=== PATIENT | female | born 1930 | race Caucasian/White ===

== ENCOUNTER → 2017-04-05 | Outpatient (REF) | payer MEDICARE ==
[~2017-04-05] MED LIST: /ADVA50050 IN; /AMLO25TA OR; /FENT25PA; /MIRT30TA OR; /PANT40TA; /ROPI1TA OR; ACET65TA OR; ALBU17IN2 IN; ALDA25TA2; AMIODIPINE; ARTISOL10; ASPI81TA3 OR; ASPI81TA83; BACT800T; CIPR250T3 OR; COLA100C2; COZA25TA8; DEMA10TA; DEMA10TA OR; DICY10CA2 OR; DIGO0.126; DIGO0.126 OR; DUONSOL; FENTANYL TOP; FERR325T OR; KEPPRA; KEPPRA OR; LAB; LOPR50TA OR; MAGN250T OR; MAGN500T2 OR; MAGNESIUM OXIDE; METO5TAB2; METO5TAB2 OR; METOPROLOL; MILKSUS; MILKSUS OR; MIRALEX; MIRALEX PO; MIRAPEX; MULTIVIT; OMEP20TA7 OR; POTA20TA OR; POTA20TA2; PRED10TA2; REME30TA; REMERON; SENN8.6T5 OR; SYNT50TA; SYNT50TA OR; TESS100C; TORS20TA2 OR; TYLENOL; VIBR100C; VICO5TAB OR; VITA500C; ZEBE5TAB; ZOCO20TA; ZOCO40TA OR; ZOLO50TA; ZOLO50TA OR; fleet enema PR; mucinex PO
[2017-04-05 16:11] LABS: BASO % 0.5 % (0.0-1.0); EOS # 0.1 K/mm3 (0.0-0.50); EOS % 1.6 % (0.0-3.0); LARGE UNSTAINED CELL # 0.1 K/mm3 (0.0-0.4); LARGE UNSTAINED CELL % 2.2 % (0.0-4.0); LYMPH % 30.7 % (24.0-44.0); MEAN CORPUSCULAR HEMOGLOBIN 28.1 pg (27.0-33.0); MEAN CORPUSCULAR VOLUME 87.7 fl (80.0-96.0); MONO # 0.4 K/mm3 (0.0-0.8); MONO % 5.9 % (0.0-5.0); NEUTROPHILS # 3.6 K/mm3 (1.8-7.7); NEUTROPHILS % 59.2 % (36.0-66.0); PLATELET COUNT, AUTOMATED 189 k/mm3 (150-450); RED CELL DISTRIBUTION WIDTH 14.5 % (11.5-14.5)
[2017-04-05 16:43] LABS: ALBUMIN 3.5 GM/DL (3.2-5.2); ALBUMIN/GLOBULIN RATIO 1.21 (1.00-1.93); BILIRUBIN,TOTAL 0.3 MG/DL (0.2-1.0); CALCIUM LEVEL 9.1 MG/DL (8.8-10.2); CREATININE FOR GFR 1.03 MG/DL (0.55-1.02); FREE T4 0.96 NG/DL (0.76-1.46); GLOMERULAR FILTRATION RATE 54.1 (>32); POTASSIUM SERUM 4.3 MEQ/L (3.5-5.1); TOTAL PROTEIN 6.4 GM/DL (6.4-8.2)
== END ==
LOC: M SFHCPLAZ 11:37
PROVIDERS: ATTEND Nurse Practitioner Family
DX: J43.9 Emphysema, unspecified (principal); E03.9 Hypothyroidism, unspecified
CPT/HCPCS: 36415; 80053; 84439; 84443; 85025; G0463

== ENCOUNTER 2018-01-31 13:20 | Emergency (ER) | payer MEDICARE ==
[2018-01-31 16:14] LABS: BASO % 0.3 % (0.0-1.0); EOS # 0.1 10^3/uL (0.0-0.50); EOS % 0.7 % (0.0-3.0); HEMATOCRIT 32.2 % (36.0-47.0); HEMOGLOBIN 10.4 g/dl (12.0-15.5); IMMATURE GRANULOCYTE % 0.4 % (0-3.0); LYMPH # 1.2 10^3/uL (1.5-4.5); LYMPH % 17.2 % (24.0-44.0); MEAN CORPUSCULAR HEMOGLOBIN 27.4 pg (27.0-33.0); MEAN CORPUSCULAR HGB CONC 32.3 g/dl (32.0-36.5); MONO # 0.5 10^3/uL (0.0-0.8); NEUTROPHILS % 73.4 % (36.0-66.0); PLATELET COUNT, AUTOMATED 211 10^3/uL (150-450); RED BLOOD COUNT 3.79 10^6/uL (4.00-5.40); RED CELL DISTRIBUTION WIDTH 15.9 % (11.5-14.5); WHITE BLOOD COUNT 6.8 10^3/uL (4.0-10.0)
[2018-01-31 17:08] LABS: ANION GAP 6 MEQ/L (8-16); BLOOD UREA NITROGEN 12 MG/DL (7-18); CALCIUM LEVEL 8.7 MG/DL (8.8-10.2); CARBON DIOXIDE LEVEL 28 MEQ/L (21-32); CHLORIDE LEVEL 109 MEQ/L (98-107); CREATININE FOR GFR 0.94 MG/DL (0.55-1.30); GLUCOSE, FASTING 99 MG/DL (70-100); POTASSIUM SERUM 4.1 MEQ/L (3.5-5.1); SODIUM LEVEL 143 MEQ/L (136-145)
[2018-01-31] MEDS ORDERED: ISOVUE-370 76% 100ML VIAL (Q9967) As Ordered (17:16)
== END 2018-01-31 18:24 | disposition home or self-care (01) ==
LOC: M ED 13:20
DX: K52.9 Noninfective gastroenteritis and colitis, unspecified (principal); I11.0 Hypertensive heart disease with heart failure; I50.9 Heart failure, unspecified; J44.9 Chronic obstructive pulmonary disease, unspecified; I25.2 Old myocardial infarction; R56.9 Unspecified convulsions; E03.9 Hypothyroidism, unspecified; F33.9 Major depressive disorder, recurrent, unspecified; Z79.899 Other long term (current) drug therapy; Z79.82 Long term (current) use of aspirin; Z79.890 Hormone replacement therapy
CPT/HCPCS: Q9967

== ENCOUNTER → 2018-05-10 | Outpatient (CLI) | payer MEDICARE | LOC: M WUC 11:21 | DX: R05 Cough (principal) | CPT/HCPCS: 71046 ==

== ENCOUNTER → 2018-05-22 | Outpatient (REF) | payer MEDICARE | LOC: M SFHCPLAZ 11:01 | DX: I50.42 Chronic combined systolic (congestive) and diastolic (congestive) heart failure (principal); J43.9 Emphysema, unspecified; Z53.8 Procedure and treatment not carried out for other reasons ==

== ENCOUNTER → 2018-05-22 | Outpatient (CLI) | payer MEDICARE ==
[2018-05-22 13:14] LABS: BASO % 0.4 % (0.0-1.0); EOS # 0.2 10^3/uL (0.0-0.50); EOS % 1.7 % (0.0-3.0); HEMATOCRIT 38.3 % (36.0-47.0); HEMOGLOBIN 12.5 g/dl (12.0-15.5); IMMATURE GRANULOCYTE % 0.4 % (0-3.0); LYMPH # 2.3 10^3/uL (1.5-4.5); MEAN CORPUSCULAR HEMOGLOBIN 27.8 pg (27.0-33.0); MEAN CORPUSCULAR HGB CONC 32.6 g/dl (32.0-36.5); MEAN CORPUSCULAR VOLUME 85.3 fl (80.0-96.0); MONO # 0.7 10^3/uL (0.0-0.8); MONO % 6.6 % (0.0-5.0); NEUTROPHILS # 7.1 10^3/uL (1.8-7.7); NEUTROPHILS % 68.9 % (36.0-66.0); PLATELET COUNT, AUTOMATED 248 10^3/uL (150-450); RED BLOOD COUNT 4.49 10^6/uL (4.00-5.40); RED CELL DISTRIBUTION WIDTH 15.9 % (11.5-14.5); WHITE BLOOD COUNT 10.3 10^3/uL (4.0-10.0)
[2018-05-22 14:01] LABS: ALBUMIN 3.2 GM/DL (3.2-5.2); ALBUMIN/GLOBULIN RATIO 0.91 (1.00-1.93); ALKALINE PHOSPHATASE 114 U/L (45-117); ALT/SGPT 28 U/L (12-78); ANION GAP 9 MEQ/L (8-16); AST/SGOT 50 U/L (7-37); BILIRUBIN,TOTAL 0.6 MG/DL (0.2-1.0); BLOOD UREA NITROGEN 35 MG/DL (7-18); CALCIUM LEVEL 9.6 MG/DL (8.8-10.2); CARBON DIOXIDE LEVEL 28 MEQ/L (21-32); CHLORIDE LEVEL 104 MEQ/L (98-107); GLOMERULAR FILTRATION RATE 55.8 (>32); GLUCOSE, FASTING 111 MG/DL (70-100); NT-PRO BNP 2834 PG/ML (<450); POTASSIUM SERUM 4.1 MEQ/L (3.5-5.1); SODIUM LEVEL 141 MEQ/L (136-145); TOTAL PROTEIN 6.7 GM/DL (6.4-8.2)
== END ==
LOC: M LAB 11:40
DX: I50.42 Chronic combined systolic (congestive) and diastolic (congestive) heart failure (principal); J43.9 Emphysema, unspecified
CPT/HCPCS: 71046

== ENCOUNTER → 2018-05-25 | Outpatient (REF) | payer MEDICARE ==
[2018-05-25 18:51] LABS: THYROID STIMULATING HORMONE 0.571 uIU/ML (0.358-3.740)
== END ==
LOC: M SFHCPLAZ 14:54
DX: R53.1 Weakness (principal)
CPT/HCPCS: 84443

== ENCOUNTER → 2018-06-08 | Outpatient (CLI) | payer MEDICARE | LOC: M CARPUL 09:33 | DX: I48.2 Chronic atrial fibrillation (principal) | CPT/HCPCS: 93306 ==

== ENCOUNTER → 2018-08-07 | Outpatient (REF) | payer MEDICARE ==
[2018-08-07 15:06] LABS: BACTERIA, URINE AUTO 1+ (NEGATIVE); MUCUS, URINE SMALL (NEGATIVE); RBC, URINE AUTO 2 /HPF (0-3); SQUAMOUS EPITHELIAL CELL UR AU 9 /HPF (0-6); WBC, URINE AUTO 3 /HPF (0-3)
== END ==
LOC: M LAB REF 13:23
DX: L22 Diaper dermatitis (principal)
CPT/HCPCS: 81015

== ENCOUNTER 2018-08-25 09:58 | Emergency (ER) | payer MEDICARE ==
[2018-08-25 10:32] LABS: AMORPHOUS SEDIMENT RFX SMALL (NEGATIVE); KETONE, URINE AUTO RFX NEGATIVE (NEGATIVE); LEUKOCYTE ESTERASE UR AUTO RFX NEGATIVE (NEGATIVE); MUCUS, URINE RFX SMALL (NEGATIVE); NITRITE, URINE AUTO RFX NEGATIVE (NEGATIVE); RBC, URINE AUTO RFX 2 /HPF (0-3); SQUAM EPITHELIAL CELL UR AURFX 3 /HPF (0-6); WBC, URINE AUTO RFX 0 /HPF (0-3)
[2018-08-25] MEDS: ACETAMINOPHEN 325 MG TAB PO (11:15)
[2018-08-25] MEDS ORDERED: ACETAMINOPHEN TAB 650MG DOSE (2X325MG) PO (11:15)
== END 2018-08-25 13:57 | disposition home or self-care (01) ==
LOC: M ED 09:58
DX: K62.3 Rectal prolapse (principal); I48.91 Unspecified atrial fibrillation; I50.9 Heart failure, unspecified; I25.10 Atherosclerotic heart disease of native coronary artery without angina pectoris; I10 Essential (primary) hypertension; N18.3 Chronic kidney disease, stage 3 (moderate); M19.90 Unspecified osteoarthritis, unspecified site; J44.9 Chronic obstructive pulmonary disease, unspecified; Z79.82 Long term (current) use of aspirin; Z79.899 Other long term (current) drug therapy
CPT/HCPCS: 74176

== ENCOUNTER 2018-10-21 19:19 | Inpatient (IN) | payer MEDICARE ==
[~2018-10-21] VITALS: Ht 160 cm; Wt 62.1 kg
[~2018-10-21 19:19] MED LIST changes: +CIPR-249 PO; +FLAG500T PO
[2018-10-21 22:02] LABS: HEMATOCRIT 31.2 % (36.0-47.0); HEMOGLOBIN 9.8 g/dl (12.0-15.5); MEAN CORPUSCULAR HEMOGLOBIN 28.8 pg (27.0-33.0); MEAN CORPUSCULAR HGB CONC 31.4 g/dl (32.0-36.5); MEAN CORPUSCULAR VOLUME 91.8 fl (80.0-96.0); PLATELET COUNT, AUTOMATED 187 10^3/uL (150-450); WHITE BLOOD COUNT 15.1 10^3/uL (4.0-10.0)
[2018-10-21 22:12] LABS: INR 1.44; PROTHROMBIN TIME 17.8 SECONDS (12.1-14.4)
[2018-10-21 22:13] LABS: PARTIAL THROMBOPLASTIN TIME 31.5 SECONDS (25.4-37.6)
[2018-10-21 22:18] LABS: ALBUMIN 2.1 GM/DL (3.2-5.2); BILIRUBIN,DIRECT 0.1 MG/DL (0.0-0.2); BILIRUBIN,TOTAL 0.2 MG/DL (0.2-1.0); CALCIUM LEVEL 8.1 MG/DL (8.8-10.2); CREATININE FOR GFR 1.49 MG/DL (0.55-1.30); GLOMERULAR FILTRATION RATE 35.2 (>32); MB/CK RELATIVE INDEX 3.97 (< OR =4); POTASSIUM SERUM 5.2 MEQ/L (3.5-5.1); TOTAL PROTEIN 5.8 GM/DL (6.4-8.2); TROPONIN I 0.02 NG/ML (< 0.10)
[2018-10-21 22:24] LABS: EOSINOPHILS 19 % (0-5); LYMPHOCYTES 15 % (16-52); MONOCYTES 5 % (0-8); NEUTROPHILS 58 % (35-75)
[2018-10-21 22:26] LABS: ANISOCYTOSIS 1+; PLATELET ESTIMATE NORMAL (NORMAL)
[2018-10-21 22:46] LABS: C REACTIVE PROTEIN QUANTITATIV 1.07 MG/DL (0.00-0.30)
--- NOTE | 2018-10-21 22:46 | REPVR ---
EXAM: CT Head Without Contrast EXAM DATE/TIME: 10/21/2018 9:57 PM CLINICAL HISTORY: 88 years old, female; Signs and symptoms; Speech disturbance; Slurred speech; Additional info: Slurred speech, weakness TECHNIQUE: Axial computed tomography images of the head/brain without contrast. All CT scans at this facility use at least one of these dose optimization techniques: automated exposure control; mA and/or kV adjustment per patient size (includes targeted exams where dose is matched to clinical indication); or iterative reconstruction. COMPARISON: No relevant prior studies available. FINDINGS: Brain: There is marked increase of the CSF space over the left frontal lobe measuring 1.2 CM in greatest thickness. This is asymmetric when compared with the right. This may represent a hygroma. An old low density subdural hematoma collection could give this low density appearance but thought less likely. Focal atrophy is another consideration. There is also prominent CSF at the anterior Falx. Ventricles: Ventricles are normal in size. Bones/joints: There is no evidence of fracture. Sinuses: Clear paranasal sinuses. Mastoid air cells: Visualized mastoid air cells are unremarkable. No mastoid effusion. Soft tissues: Unremarkable. Vasculature: There is calcification of the carotid siphon bilaterally consistent with atherosclerotic change. Other findings: No definite acute stroke can be seen. An MRI scan would be a more sensitive examination and should be considered. IMPRESSION: 1. Marked increase in the CSF space over the left frontal lobe and this could represent a cystic hygroma. 2. No evidence of acute stroke. Suggest MRI for further evaluation. Electronically signed by: Mateo Heaton On 10/21/2018 22:45:50 PM
[2018-10-21 22:56] LABS: ERYTHROCYTE SEDIMENTATION RATE 12 mm/hr (0-42)
[2018-10-22] MEDS ORDERED: methylPREDNISolone INJ 125 MG/2 ML VIAL (J2930) IV ONE (01:15)
[2018-10-22] MEDS ORDERED: NS 1,000 ML IV ONE (01:15)
[2018-10-22 01:31] LABS: CSF TUBE# GLU TUBE 3; CSF TUBE# TP TUBE 3; GLUCOSE CSF 59 MG/DL (40-75); TOTAL PROTEIN,CSF 30 MG/DL (15-45)
[2018-10-22 01:36] LABS: APPEARANCE, CSF CLEAR (CLEAR); COLOR, CSF COLORLESS (COLORLESS); CSF TUBE# CELL CNT TUBE 1
[2018-10-22 01:37] LABS: APPEARANCE, CSF CLEAR (CLEAR); COLOR, CSF COLORLESS (COLORLESS); CSF TUBE# CELL CNT TUBE 4
[2018-10-22] MEDS ORDERED: METO25TA4 PO (02:56)
[2018-10-22] MEDS ORDERED: POTA20TA6 PO (02:56)
[2018-10-22] MEDS ORDERED: KEPP1TAB PO (02:56)
[2018-10-22] MEDS ORDERED: AMLO25TA PO (02:56)
[2018-10-22] MEDS ORDERED: DICY10CA13 PO (02:56)
[2018-10-22] MEDS ORDERED: SENN8.6T7 PO (02:56)
[2018-10-22] MEDS ORDERED: FERR325T3 PO (02:56)
[2018-10-22] MEDS ORDERED: LEVO50TA5 PO (02:56)
[2018-10-22] MEDS ORDERED: REGL5TAB2 PO (02:56)
[2018-10-22] MEDS ORDERED: ASPI1TAB PO (02:56)
[2018-10-22] MEDS ORDERED: ZOLO100T PO (03:00)
[2018-10-22] MEDS ORDERED: ROPI0.253 PO (03:00)
[2018-10-22] MEDS ORDERED: REME30TA PO (03:00)
[2018-10-22] MEDS ORDERED: OMEP40CA2 PO (03:00)
[2018-10-22] MEDS ORDERED: MIRA3350 PO (03:00)
[2018-10-22] MEDS ORDERED: SIMV40TA2 PO (03:00)
[2018-10-22] MEDS ORDERED: ALBU83IN INH (03:00)
[2018-10-22] MEDS ORDERED: FENT1DIS14 TD (03:00)
[2018-10-22] MEDS ORDERED: ZOCO20TA PO (03:01)
[2018-10-22] MEDS ORDERED: TORS10TA3 PO (03:01)
[2018-10-22] MEDS: NS 1,000 ML IV SCH ×2 (03:27→08:51)
[2018-10-22] MEDS ORDERED: FUROSEMIDE 40 MG/4 ML VIAL (J1940) IV ONE (03:45)
[2018-10-22] MEDS ORDERED: diphenhydrAMINE 25 MG CAP PO PRN (04:00)
[2018-10-22] MEDS: METOPROLOL TART 25 MG TABLET PO SCH ×2 (04:22→21:14)
[2018-10-22] MEDS: SERTRALINE 100 MG TAB PO SCH ×2 (04:23→21:54)
[2018-10-22] MEDS: rOPINIRole 0.25 MG TAB(REQUIP) PO SCH ×2 (04:23→21:54)
[2018-10-22] MEDS: AZITHROMYCIN INJ 500 MG, VIAL MATE ADAPTER 1 EACH in D5W 250 ML IV SCH (06:50)
[2018-10-22 07:15] LABS: CALCIUM LEVEL 8.2 MG/DL (8.8-10.2); CREATININE FOR GFR 1.46 MG/DL (0.55-1.30); POTASSIUM SERUM 4.6 MEQ/L (3.5-5.1); THYROID STIMULATING HORMONE 3.47 uIU/ML (0.358-3.740); TROPONIN I 0.03 NG/ML (< 0.10)
[2018-10-22 08:00] VITALS: BP 120/66
[2018-10-22] MEDS: IPRATROPIUM 0.5MG/ALBUTEROL 2.5MG INH SOL UD 3ML (DUONEB)(J7620) NEB SCH ×3 (08:16→19:51)
[2018-10-22] MEDS: OMEPRAZOLE 20 MG CAP PO SCH ×2 (08:44→21:15)
[2018-10-22] MEDS: levETIRAcetam 250MG TABLET (KEPPRA) PO SCH ×2 (08:44→21:15)
[2018-10-22] MEDS: LEVOTHYROXINE 50MCG TABLET (0.05MG) PO SCH (08:44)
[2018-10-22] MEDS: SIMVASTATIN 20 MG TAB PO SCH (08:44)
[2018-10-22] MEDS: predniSONE 20 MG TAB PO SCH (08:45)
[2018-10-22] MEDS: SENOKOT S TAB PO SCH ×2 (08:45→21:15)
[2018-10-22] MEDS: FERROUS SULFATE 325MG TAB PO SCH (08:45)
--- NOTE | 2018-10-22 08:45 | HPE ---
DATE OF ADMISSION: 10/22/2018 CHIEF COMPLAINT: Cough, shortness of breath, and diffuse purpuric rash over the last 2-3 days. HISTORY OF PRESENT ILLNESS: The patient is an 88-year-old female with significant past medical history of coronary artery disease, congestive heart failure (CHF), atrial fibrillation not on anticoagulation because of rectal bleed due to rectal prolapse, transient ischemic attack (TIA), hyperlipidemia, chronic obstructive pulmonary disease (COPD), arthritis, hypothyroidism, and restless leg syndrome. The patient presents to the emergency room with cough that she is unable to clear for the past two days, difficulty breathing. She was noted to be satting in the low 80s in presentation to the emergency room. She was placed on 4 liters of oxygen with improvement in her saturations. She was also noted to have a diffuse purpuric rash on the legs, the upper extremities, the trunk. Family states the patient also had some confusion, however in the emergency room the patient was alert and oriented times three with no focal deficits appreciated on the exam. She was able to answer most of the questions cohesively. She denies any chest pain. She denies any fevers or chills, or sick contacts. She denies urinary symptoms, abdominal pain, constipation, no diarrhea. In the emergency room, her platelet count was noted to be normal. There was a drop in her hemoglobin from 12 to 9.8, but she has had a chronic bleed from rectal prolapse. Coags were unremarkable. PAST MEDICAL HISTORY: See history of present illness. PAST SURGICAL HISTORY: Appendectomy. Cholecystectomy. History of brain surgery as a child. Surgery for peptic ulcer disease. Total knee replacement. ALLERGIES: No known drug allergies. HOME MEDICATIONS: Include: - Norvasc - Colace - ferrous sulfate - Keppra - Synthroid - metoprolol - Remeron - Prilosec - ropinirole - sertraline - Zocor - aspirin - fentanyl patch - Reglan - potassium chloride - torsemide SOCIAL HISTORY: She denies tobacco, alcohol or illicit drug use. FAMILY HISTORY: Noncontributory. REVIEW OF SYSTEMS: A 12 point review of systems was completed, all of which were negative except those listed in the history of present illness. VITAL SIGNS ON ADMISSION: Temperature 97.9, pulse 86, respirations 19, satting at 90% on 4 liters nasal cannula, blood pressure 121/59. PHYSICAL EXAMINATION: GENERAL: She is an elderly female in no apparent distress. HEAD: Normocephalic, atraumatic. EYES: Extraocular movements are intact. Pupils equal, round, reactive to light. NECK: Supple. No jugular venous pressure (JVP). LUNGS: Mild wheezing, crackles at the right lung base. No use of accessory muscles. CARDIOVASCULAR: Irregularly irregular rhythm. Normal S1 and S2. No murmurs, gallops, or rubs. ABDOMEN: Soft, nontender, nondistended. Positive bowel sounds. No rebound or guarding. EXTREMITIES: No pitting edema or calf tenderness. SKIN: Has a diffuse purpuric rash, nonpruritic, noted on the legs, the upper extremities and the trunk. No rash in the oral mucosa. NEUROLOGICAL EXAM: Alert and oriented times three. No focal deficits appreciated on exam. LABS AND IMAGING COMPLETED IN THE EMERGENCY DEPARTMENT: White count of 15, hemoglobin and hematocrit of 9/31, platelet count of 187. The WBC is 15.1, which is 19% eosinophils. Coags INR of 1.4, PTT of 31, PT of 17. Chemistry shows a potassium of 52. No EKG changes. Chloride of 118, bicarb of 19, anion gap of 7, BUN and creatinine 35/1.4, baseline creatinine of 1, lactate of 1.2. CT of the head showed marked increase in CSF space over the left frontal lobe and this could represent a cystic hygroma, no evidence of acute stroke. Chest x-ray possibly shows a small right pleural effusion, possible right lower lobe blooming infiltrate versus platelike atelectasis. ASSESSMENT/PLAN: Purpuric rash, cough. Possibly secondary to community acquired pneumonia with resulting septic vasculitis. Will treat with ceftriaxone and azithromycin. Will send sputum culture for urine legionella, urine pneumococcal antigen, blood culture sent times two. 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 Will send KIP, ESR, CRP. Will place the patient on steroids 40 mg daily. Meningococcal meningitis already ruled out in the ER. CSF is negative for infection. The patient has no headache, no meningeal signs, no neck pain. It is unlikely that she has any spectrum of TTP or HSP. She has no abdominal pain. No diarrhea. Her platelets are within normal limits. Her coags are unremarkable but would also send a fibrinogen level. The patient is not on any anticoagulation. The rest of her chronic medical conditions coronary artery disease, hold aspirin in the case of purpura. Continue metoprolol 25 mg twice a day. For congestive heart failure (CHF), will hold torsemide and potassium supplements for now in the setting of likely dehydration and acute renal failure with hyperkalemia. The patient appears to be euvolemic and not fluid overloaded at this point in time. Atrial fibrillation not on anticoagulation. Continue metoprolol. Will keep the patient on telemetry and will trend troponins times two. History of transient ischemic attack (TIA). Hold aspirin for now. Hyperlipidemia. Continue statin. COPD. DuoNebs, prednisone. In mild exacerbation secondary to what is likely community acquired pneumonia. Hypothyroidism. Continue Synthroid. Send TSH. Restless leg syndrome. Continue ropinirole. The patient does have a fentanyl patch in place. Deep vein thrombosis (DVT) prophylaxis. Sequential compression devices (SCD) in the setting of purpuric rash. Gastrointestinal (GI) prophylaxis, not indicated. Diet. Cardiac. This possible allergic contact dermatitis versus autoimmune vasculitis versus infectious vasculitis secondary to pneumonia. Will place the patient on Benadryl and prednisone. Will send KIP, ESR, CRP. Will treat for pneumonia. Will send sputum culture, urine legionella, urine pneumococcal antigen. Allergic contact dermatitis with an elevated eosinophil count. [facility]
[2018-10-22] MEDS: cefTRIAXone SOD 1 GM in D5W MINI-BAG PLUS 50 ML IV SCH (08:50)
[2018-10-22] MEDS ORDERED: METOPROLOL TART 25 MG TABLET PO SCH (09:00)
--- NOTE | 2018-10-22 09:13 | ECGEPIP ---
Stationary ECG Study [facility] Test Date: 2018-10-22 Pat Name: MELLY ABEL Department: Room: [place] [address] Gender: F Flight Attendant: LEONID : 1930 Requested By: ALCON TUESDAY Order Number: [id number] Reading MD: Chelly Kline Measurements Intervals [place] Rate: 66 P: [place]: 0 QRS: -46 QRSD: 82 T: 25 QT: 404 QTc: 424 Interpretive Statements ATRIAL FIBRILLATION LOW QRS VOLTAGE IN EXTREMITY LEADS PATTERN CONSISTENT WITH PULMONARY DISEASE INFERIOR MYOCARDIAL INFARCTION, PROBABLY OLD NO PRIOR Electronically Signed On 10-22-2018 9:12:38 EST by Chelly Kline
[2018-10-22] MEDS: DICYCLOMINE 10 MG CAP PO SCH ×4 (10:06→21:15)
--- NOTE | 2018-10-22 11:03 | REP ---
AP PORTABLE CHEST: 10/22/2018. COMPARISON: Chest x-ray 05/22/2018, 05/10/2018, lung windows from CT abdomen/pelvis 08/25/2018. CLINICAL HISTORY: Cough. FINDINGS: There is right base infiltrate above the diaphragm and streaky density extending toward it. There is some underlying interstitial fibrosis. Heart mildly prominent, left atrial enlargement noted. Appears to be some vascular redistribution, engorgement of central veins, but no qi edema. No gross effusion on the left. Small effusion difficult to exclude on the right. Aortic calcified and tortuous, unchanged. Airway midline, unchanged. Degenerative changes in the spine. Some underlying interstitial fibrosis noted. IMPRESSION: 1. Right base infiltrate suggesting acute pneumonia. Small effusion difficult to exclude. 2. Left atrial enlargement, vascular congestion with pulmonary venous hypertension. Heart size mildly prominent overall. No qi edema. In the setting of interstitial fibrosis, early interstitial edema may be difficult to exclude. Electronically Signed by Hesham Humphreys MD 10/22/2018 11:26 A
[2018-10-22 12:00] VITALS: BP 107/58
--- NOTE | 2018-10-22 13:07 | IPN ---
DATE OF VISIT: 10/22/2018 Mrs. Miramontes was admitted overnight with some cough, shortness of breath, confusion, and a diffuse rash of several days' duration. There is some thought that the rash was petechial, but I think that it is really more an excoriated rash. Nonetheless, she did have studies to rule out Neisseria meningitis. She says that she is coughing somewhat and is feeling a little short of breath but not raising any phlegm. She does not think that she has had any fevers, chills, or sweats. Has been itchy the last few days. She does not think she has been confused. Her current medications include Remeron 30 mg daily. She has been placed on prednisone 40 mg daily. She is on dicyclomine 10 mg four times a day, Senokot-S one twice a day, ferrous sulfate 325 mg daily, Keppra 500 mg twice a day, levothyroxine 50 mg daily, omeprazole 40 mg daily, simvastatin 20 mg daily, DuoNebs every 6 hours, ceftriaxone 1 gram daily, azithromycin 500 mg daily, metoprolol 25 mg twice a day, Benadryl 25 mg every 6 hours as needed for itching, MiraLAX one packet daily as needed, sertraline 100 mg daily, Norvasc 2.5 mg daily, Requip 0.25 mg at bedtime. On examination, her blood pressure is 102/60, pulse is 68 and regular. Her O2 saturation at this time is 99%. In the emergency room, she had been requiring 4 liters to keep her saturations in the 90s. She is an older pleasant white female. Does not appear in any distress at this time. Her speech is clear. Mucous membranes are moist. There are no neck masses, tenderness, or adenopathy. No carotid bruits. Lungs: Reveal some harsh breath sounds at both bases. Heart: Has a regular rhythm without any murmur, click, or gallop. Abdomen is soft and nontender without any masses or organomegaly. Bowel sounds are active. She does have 1+ edema of her lower extremities. I do note that her rash at first glance appears petechial but palpating it, it looks more like excoriations. Chest x-ray shows the right base infiltrate suggesting an acute pneumonia, left atrial enlargement, vascular congestion, pulmonary venous hypertension, heart size mildly increased. Her sedimentation rate is 15. Her admission laboratories showed a hemoglobin of 9.8, WBC 15,100, BUN 34, creatinine 1.6 today. Sodium 145, potassium 4.5, TSH 3.47. Troponin is 0.02 and 0.03. Liver functions are normal. ASSESSMENT: 1. Chest infiltrate consistent with community-acquired pneumonia. 2. Rash, question etiology, but more consistent with pruritus with excoriations. 3. Atrial fibrillation, not anticoagulated, presumably due to fall risk. 4. Congestive heart failure, seems stable at this time. 5. Transient ischemic attacks (TIAs) by history. 6. Hyperlipidemia. 7. Chronic obstructive pulmonary disease (COPD). 8. Hypothyroidism. 9. Anemia. PLAN: The patient will continue on her treatment for community-acquired pneumonia with steroids, nebulizers, and antibiotics. Her platelet count is normal, and I do not think this is a petechial rash, so I think she can resume her aspirin prophylaxis. For deep venous thrombosis (DVT) prophylaxis, she is getting sequential stockings. I am going to order some emollient cream, as well, for her rash. I also reviewed her medical orders for life-sustaining treatment (MOLST) form. The patient in 2016 requested comfort measures, trial of intubation, and artificial ventilation. It was noted that on her old MOLST form, her signature was not dated and timed, but the physician's signature was. Will try to do a new form with all the signatures, numbers, and dates appropriate. RACHAEL
[2018-10-22] MEDS ORDERED: ONDANSETRON 4 MG TAB (S0181) PO PRN (13:45)
[2018-10-22 16:00] VITALS: BP 91/58
--- NOTE | 2018-10-22 16:37 | ECGEPIP ---
Stationary ECG Study [facility] - ED Test Date: 2018-10-21 Pat Name: MELLY ABEL Department: Room: [place] [address] Gender: F Accounts Payable Analyst: ANTHONY : 1930 Requested By: DANI Pineda Order Number: [id number] Reading MD: Elisabeth Rodas Measurements Intervals [place] Rate: 79 P: [place]: 0 QRS: -46 QRSD: 76 T: 29 QT: 365 QTc: 421 Interpretive Statements ATRIAL FIBRILLATION LOW QRS VOLTAGE IN EXTREMITY LEADS INFERIOR MYOCARDIAL INFARCTION, PROBABLY OLD NO PRIOR FOR COMPARISON Electronically Signed On 10-22-2018 16:37:38 EST by Elisabeth Rodas
[2018-10-22] MEDS: EUCERIN 120GM CREAM TOP SCH ×2 (16:44→21:16)
[2018-10-22 20:00] VITALS: BP 98/54
[2018-10-22] MEDS: MIRTAZAPINE 15 MG TAB PO SCH (21:15)
[2018-10-22 22:53] VITALS: BP 87/51
[2018-10-23] VITALS: BP 107/60
[2018-10-23] MEDS: IPRATROPIUM 0.5MG/ALBUTEROL 2.5MG INH SOL UD 3ML (DUONEB)(J7620) NEB SCH ×4 (01:09→18:46)
[2018-10-23 04:00] VITALS: BP 101/65
[2018-10-23 04:52] LABS: HEMATOCRIT 23.1 % (36.0-47.0); MEAN CORPUSCULAR HEMOGLOBIN 28.8 pg (27.0-33.0); MEAN CORPUSCULAR HGB CONC 32.9 g/dl (32.0-36.5); MEAN CORPUSCULAR VOLUME 87.5 fl (80.0-96.0); PLATELET COUNT, AUTOMATED 158 10^3/uL (150-450); RED BLOOD COUNT 2.64 10^6/uL (4.00-5.40); WHITE BLOOD COUNT 11.6 10^3/uL (4.0-10.0)
[2018-10-23] MEDS: AZITHROMYCIN INJ 500 MG, VIAL MATE ADAPTER 1 EACH in D5W 250 ML IV SCH (05:00)
[2018-10-23] MEDS: cefTRIAXone SOD 1 GM in D5W MINI-BAG PLUS 50 ML IV SCH (05:04)
[2018-10-23 05:07] LABS: HEMOGLOBIN 7.6 g/dl (12.0-15.5)
[2018-10-23 05:13] LABS: CALCIUM LEVEL 7.6 MG/DL (8.8-10.2); CREATININE FOR GFR 1.65 MG/DL (0.55-1.30); GLOMERULAR FILTRATION RATE 31.3 (>32); POTASSIUM SERUM 4.4 MEQ/L (3.5-5.1)
[2018-10-23 08:00] VITALS: BP 108/65
[2018-10-23] MEDS: FERROUS SULFATE 325MG TAB PO SCH (09:28)
[2018-10-23] MEDS: DICYCLOMINE 10 MG CAP PO SCH ×4 (09:28→22:01)
[2018-10-23] MEDS: levETIRAcetam 250MG TABLET (KEPPRA) PO SCH ×2 (09:28→21:58)
[2018-10-23] MEDS: SIMVASTATIN 20 MG TAB PO SCH (09:28)
[2018-10-23] MEDS: LEVOTHYROXINE 50MCG TABLET (0.05MG) PO SCH (09:29)
[2018-10-23] MEDS: SENOKOT S TAB PO SCH ×2 (09:29→21:58)
[2018-10-23] MEDS: METOPROLOL TART 25 MG TABLET PO SCH ×2 (09:29→21:58)
[2018-10-23] MEDS: predniSONE 20 MG TAB PO SCH (09:29)
[2018-10-23] MEDS: OMEPRAZOLE 20 MG CAP PO SCH ×2 (09:30→21:58)
[2018-10-23] MEDS: EUCERIN 120GM CREAM TOP SCH ×2 (09:31→21:59)
[2018-10-23 12:00] VITALS: BP 127/66
[2018-10-23 16:00] VITALS: BP 113/58
[2018-10-23 16:47] LABS: HEMATOCRIT 31.2 % (36.0-47.0); HEMOGLOBIN 10.2 g/dl (12.0-15.5)
--- NOTE | 2018-10-23 18:47 | IPNPDOC ---
Subjective Date Seen The patient was seen on 10/23/18. Subjective Chief Complaint/HPI Patient reports still having a cough. Feels about the same as admission. Has history of rectal prolapse. Denies lightheadedness, chest pain. Constitutional: Denies: Chills, Fever ENT: Denies: Head Aches Pulmonary: Reports: Cough Objective Physical Examination General Exam: Positive: Alert, Cooperative ENT Exam: Positive: Atraumatic Neck Exam: Positive: Supple Chest Exam: Positive: Rhonchi, Wheezing Heart Exam: Positive: Rate Normal, Normal S1, Normal S2 Abdomen Exam: Positive: Normal bowel sounds Skin Exam: Positive: Rash (Diffuse on upper extremity, across chest and back. Appears ) Psych Exam: Positive: Mood NL Assessment /Plan Problems (1) Pneumonia Problem Text: Continue Azithromycin and Ceftriaxone at this time. Also continue Prednisone. (2) Rash Problem Text: Rash was thought to have been petechial. CBC continues to show normal platelet level. Today appears as excoriations. (3) Rectal prolapse Status: Chronic Problem Text: Patient has chronic history of. Monitoring anemia. Likely secondary to GI blood loss. Repeat H-H later. No blood transfusion at this time. Patient states she would consent to it if needed. On medications for constipation. (4) Anemia Problem Text: Likely has anemia secondary to blood loss. Continue iron. Hgb dropped to 7.6 today.Repeat H+H at 1400. No transfusion at this time. (5) Atrial fibrillation Problem Text: Not on anticoagulation on admission. Is on rate control with Lopressor 25 mg BID. (6) Hypothyroid Problem Text: Continue Synthroid. (7) Restless leg syndrome Problem Text: Continue Requip. Also wears pain patch, Fentanyl. (8) CHF (congestive heart failure) Problem Text: Last ECHO 06/22 EF 65%, diastolic. (9) Hyperlipemia Problem Text: Continue statin. (10) COPD (chronic obstructive pulmonary disease) Problem Text: Nebulizers q6h. (11) HTN (hypertension) Problem Text: Amlodipine, continue. Monitor Vitals. Plan/VTE VTE Prophylaxis Ordered?: Yes (Teds) VS, I&O, 24H, Fishbone Vital Signs/I&O Vital Signs Date Time Temp Pulse Resp B/P (MAP) Pulse Ox O2 Delivery O2 Flow Rate FiO2 10/23/18 12:00 98.2 70 18 127/66 (86) 93 10/22/18 03:19 Nasal Cannula 4.0 I&O- Last 24 Hours up to 6 AM 10/23/18 06:00 Intake Total 1010 ml Output Total 425 ml Balance 585 ml Laboratory Data 24H LABS Laboratory Tests 2 10/23/18 04:42: Nucleated Red Blood Cells % (auto) 0.2H, Anion Gap 8, Glomerular Filtration Rate 31.3L, Blood Urea Nitrogen 41H, Creatinine 1.65H, Sodium Level 143, Potassium Level 4.4, Chloride Level 116H, Carbon Dioxide Level 19L, Calcium Level 7.6L CBC/BMP Laboratory Tests 10/23/18 04:42 Red Blood Count 2.64 L, Mean Corpuscular Volume 87.5, Mean Corpuscular Hemoglobin 28.8, Mean Corpuscular Hemoglobin Concent 32.9, Red Cell Distribution Width 17.5 H, Calcium Level 7.6 L 10/23/18 16:24 Microbiology Microbiology 10/21/18 Blood Culture - Preliminary, Resulted No growth after 24 hours . All specim... 10/21/18 Blood Culture - Preliminary, Resulted No growth after 24 hours . All specim... 10/22/18 - Final, Complete 10/22/18 Gram Stain - Final, Resulted 10/22/18 CSF Culture, Resulted Pending GME ATTESTATION GME ATTESTATION My faculty preceptor for this patient encounter was physically present during the encounter and was fully available. All aspects of the patient interview, exa mination, medical decision making process, and medical care plan development were reviewed and approved by the faculty preceptor. The faculty preceptor is aware and concurs with the plan as stated in the body of this note and will attest to such by his/her cosignature. GEORGE LAWSON DO Oct 23, 2018 18:47
[2018-10-23] MEDS: SERTRALINE 100 MG TAB PO SCH (21:58)
[2018-10-23] MEDS: MIRTAZAPINE 15 MG TAB PO SCH (21:58)
[2018-10-23] MEDS: rOPINIRole 0.25 MG TAB(REQUIP) PO SCH (21:58)
[2018-10-23 22:00] VITALS: BP 113/58
[2018-10-24] MEDS: IPRATROPIUM 0.5MG/ALBUTEROL 2.5MG INH SOL UD 3ML (DUONEB)(J7620) NEB SCH ×4 (00:18→17:46)
[2018-10-24] MEDS: AZITHROMYCIN INJ 500 MG, VIAL MATE ADAPTER 1 EACH in D5W 250 ML IV SCH (04:19)
[2018-10-24 06:00] VITALS: BP 119/68
[2018-10-24 06:05] LABS: HEMATOCRIT 24.3 % (36.0-47.0); MEAN CORPUSCULAR HEMOGLOBIN 29.2 pg (27.0-33.0); MEAN CORPUSCULAR HGB CONC 32.9 g/dl (32.0-36.5); MEAN CORPUSCULAR VOLUME 88.7 fl (80.0-96.0); PLATELET COUNT, AUTOMATED 150 10^3/uL (150-450); RED BLOOD COUNT 2.74 10^6/uL (4.00-5.40); WHITE BLOOD COUNT 10.5 10^3/uL (4.0-10.0)
[2018-10-24] MEDS: cefTRIAXone SOD 1 GM in D5W MINI-BAG PLUS 50 ML IV SCH (06:22)
[2018-10-24 06:24] LABS: CALCIUM LEVEL 7.7 MG/DL (8.8-10.2); CREATININE FOR GFR 1.52 MG/DL (0.55-1.30); GLOMERULAR FILTRATION RATE 34.4 (>32); POTASSIUM SERUM 4.1 MEQ/L (3.5-5.1)
[2018-10-24] MEDS: SIMVASTATIN 20 MG TAB PO SCH (08:34)
[2018-10-24] MEDS: DICYCLOMINE 10 MG CAP PO SCH ×4 (08:34→21:46)
[2018-10-24] MEDS: OMEPRAZOLE 20 MG CAP PO SCH ×2 (08:35→21:46)
[2018-10-24] MEDS: LEVOTHYROXINE 50MCG TABLET (0.05MG) PO SCH (08:35)
[2018-10-24] MEDS: levETIRAcetam 250MG TABLET (KEPPRA) PO SCH ×2 (08:35→21:58)
[2018-10-24] MEDS: predniSONE 20 MG TAB PO SCH (08:35)
[2018-10-24] MEDS: SENOKOT S TAB PO SCH ×2 (08:35→21:46)
[2018-10-24] MEDS: METOPROLOL TART 25 MG TABLET PO SCH ×2 (08:36→21:47)
[2018-10-24] MEDS: FERROUS SULFATE 325MG TAB PO SCH (08:36)
[2018-10-24] MEDS: EUCERIN 120GM CREAM TOP SCH ×2 (08:37→21:58)
[2018-10-24] MEDS: fentaNYL 25 MCG/HR PATCH TOP SCH (08:38)
[2018-10-24] MEDS: FENTANYL REMOVAL DOCUMENTATION MISC XX SCH (08:39)
[2018-10-24] MEDS ORDERED: FENTANYL REMOVAL DOCUMENTATION MISC XX SCH (09:00)
[2018-10-24] MEDS ORDERED: fentaNYL 25 MCG/HR PATCH TD PRN (09:00)
[2018-10-24] MEDS ORDERED: FLUBLOK(EGG FREE)(QUAD)INFLUENZA VACC 0.5ML SYRINGE (90682)18YRS&OLDER IM SCH (09:00)
--- NOTE | 2018-10-24 11:35 | IPNPDOC ---
Subjective Date Seen The patient was seen on 10/24/18. Subjective Chief Complaint/HPI Pt this morning states that she really is feeling better. Her breathing has improved, she is feeling less SOB. She has some pain in her L heel when she attempts to stand and put pressure on it. This started after a recent fall. General: Denies: Fatigue Constitutional: Denies: Chills, Fever Pulmonary: Reports: Dyspnea, Cough Cardiovascular: Denies: Chest Pain, Palpitations Gastrointestinal: Denies: Nausea, Vomiting Psych: Reports: Mood Normal Objective Physical Examination General Exam: Positive: Alert, Cooperative ENT Exam: Positive: Atraumatic Neck Exam: Positive: Supple Chest Exam: Positive: Rhonchi, Wheezing Heart Exam: Positive: Rate Normal, Normal S1, Normal S2 Abdomen Exam: Positive: Normal bowel sounds, Soft; Negative: Tenderness Skin Exam: Positive: Rash (Diffuse on upper extremity, across chest and back. Appears ) Psych Exam: Positive: Mood NL Assessment /Plan Assessment Agree with below. Encouraged patient to work with PT. Clinically appears to be improving. -- CDT Problems (1) Pneumonia Problem Text: 10/24 Change IV rocephin to PO cefdinir, change azithromycin to PO, reduce pred 40 to 30 mg daily. resp status improving, afebrile, improving leukocytosis. (2) Rash Problem Text: Rash was thought to have been petechial. CBC continues to show normal platelet level. Today appears as excoriations. (3) Rectal prolapse Status: Chronic Problem Text: Patient has chronic history of. Monitoring anemia. Likely secondary to GI blood loss. Repeat H-H later. No blood transfusion at this time. Patient states she would consent to it if needed. On medications for constipation. (4) Anemia Problem Text: 10/24 Hgb 8, monitor. 10/23 Likely has anemia secondary to blood loss. Continue iron. Hgb dropped to 7.6 today.Repeat H+H at 1400. No transfusion at this time. (5) Atrial fibrillation Problem Text: Not on anticoagulation on admission. Is on rate control with Lopressor 25 mg BID. (6) Hypothyroid Problem Text: Continue Synthroid. (7) Restless leg syndrome Problem Text: Continue Requip. Also wears pain patch, Fentanyl. (8) CHF (congestive heart failure) Problem Text: Last ECHO 06/22 EF 65%, diastolic. (9) Hyperlipemia Problem Text: Continue statin. (10) COPD (chronic obstructive pulmonary disease) Problem Text: Nebulizers q6h. (11) HTN (hypertension) Problem Text: Amlodipine, continue. Monitor Vitals. Plan/VTE VTE Prophylaxis Ordered?: Yes (Teds) VS, I&O, 24H, Fishbone Vital Signs/I&O Vital Signs Date Time Temp Pulse Resp B/P (MAP) Pulse Ox O2 Delivery O2 Flow Rate FiO2 10/24/18 09:45 18 10/24/18 08:36 68 123/70 10/24/18 06:00 97.2 97 10/22/18 03:19 Nasal Cannula 4.0 I&O- Last 24 Hours up to 6 AM 10/24/18 06:00 Intake Total 420 ml Output Total 100 ml Balance 320 ml Laboratory Data 24H LABS Laboratory Tests 2 10/24/18 05:39: Nucleated Red Blood Cells % (auto) 0.0, Anion Gap 9, Glomerular Filtration Rate 34.4, Blood Urea Nitrogen 39H, Creatinine 1.52H, Sodium Level 138, Potassium Level 4.1, Chloride Level 113H, Carbon Dioxide Level 16L, Calcium Level 7.7L CBC/BMP Laboratory Tests 10/23/18 16:24 10/24/18 05:39 Red Blood Count 2.74 L, Mean Corpuscular Volume 88.7, Mean Corpuscular Hemoglobin 29.2, Mean Corpuscular Hemoglobin Concent 32.9, Red Cell Distribution Width 17.4 H, Calcium Level 7.7 L Microbiology Microbiology 10/21/18 Blood Culture - Preliminary, Resulted No Growth after 48 hours. All Specime... 10/21/18 Blood Culture - Preliminary, Resulted No Growth after 48 hours. All Specime... 10/22/18 - Final, Complete 10/22/18 Gram Stain - Final, Complete 10/22/18 CSF Culture - Final, Complete ISABELA HARRIS PA-C Oct 24, 2018 11:35 MILTON NOVA DO Oct 24, 2018 23:09
--- NOTE | 2018-10-24 12:39 | REP ---
LEFT FOOT, FOUR VIEWS: HISTORY: Pain. There is no acute fracture or dislocation. There is narrowing at the first metatarsophalangeal joint space with associated sclerosis in the proximal phalange. There is deformity of the distal proximal phalange with lateral deviation of the distal phalange. The bony structure is osteopenic. IMPRESSION: There is no acute fracture or dislocation. Electronically Signed by Diony Bills MD 10/24/2018 12:48 P
[2018-10-24 14:00] VITALS: BP 134/67
[2018-10-24 20:00] VITALS: BP 121/65
[2018-10-24] MEDS: MIRTAZAPINE 15 MG TAB PO SCH (21:46)
[2018-10-24] MEDS: SERTRALINE 100 MG TAB PO SCH (21:47)
[2018-10-24] MEDS: rOPINIRole 0.25 MG TAB(REQUIP) PO SCH (21:58)
[2018-10-25 00:07] LABS: ANTINUCLEAR ANTIBODIES DIRECT Negative (Negative)
[2018-10-25] MEDS: IPRATROPIUM 0.5MG/ALBUTEROL 2.5MG INH SOL UD 3ML (DUONEB)(J7620) NEB SCH ×4 (02:11→20:42)
[2018-10-25 06:00] VITALS: BP 111/59
[2018-10-25 06:04] LABS: HEMATOCRIT 23.4 % (36.0-47.0); HEMOGLOBIN 7.8 g/dl (12.0-15.5); MEAN CORPUSCULAR HEMOGLOBIN 28.7 pg (27.0-33.0); MEAN CORPUSCULAR HGB CONC 33.3 g/dl (32.0-36.5); PLATELET COUNT, AUTOMATED 161 10^3/uL (150-450); RED BLOOD COUNT 2.72 10^6/uL (4.00-5.40); WHITE BLOOD COUNT 8.9 10^3/uL (4.0-10.0)
[2018-10-25 06:35] LABS: CALCIUM LEVEL 7.7 MG/DL (8.8-10.2); CREATININE FOR GFR 1.14 MG/DL (0.55-1.30); GLOMERULAR FILTRATION RATE 47.9 (>32); POTASSIUM SERUM 3.9 MEQ/L (3.5-5.1)
[2018-10-25] MEDS: predniSONE 20 MG TAB PO SCH (08:32)
[2018-10-25] MEDS: CEFDINIR 300 MG CAP (OMNICEF) PO SCH (08:32)
[2018-10-25] MEDS: LEVOTHYROXINE 50MCG TABLET (0.05MG) PO SCH (08:33)
[2018-10-25] MEDS: levETIRAcetam 250MG TABLET (KEPPRA) PO SCH ×2 (08:33→20:31)
[2018-10-25] MEDS: OMEPRAZOLE 20 MG CAP PO SCH ×2 (08:33→20:32)
[2018-10-25] MEDS: SIMVASTATIN 20 MG TAB PO SCH (08:33)
[2018-10-25] MEDS: FERROUS SULFATE 325MG TAB PO SCH (08:33)
[2018-10-25] MEDS: AZITHROMYCIN 250 MG TAB PO SCH (08:33)
[2018-10-25] MEDS: DICYCLOMINE 10 MG CAP PO SCH ×4 (08:33→20:32)
[2018-10-25] MEDS: SENOKOT S TAB PO SCH ×2 (08:34→20:32)
[2018-10-25] MEDS: EUCERIN 120GM CREAM TOP SCH ×2 (08:34→20:33)
[2018-10-25] MEDS: METOPROLOL TART 25 MG TABLET PO SCH ×2 (08:34→20:32)
[2018-10-25 14:00] VITALS: BP 133/75
[2018-10-25 19:10] LABS: BODY FLUID CULTURE Not Indicated (.); LEGIONELLA ANTIGEN URINE Negative (Negative); ORGANISM ID Not indicated. (.); SPECIMEN SOURCE Urine (.); URINE STREP PNEUMONIAE ANTIGEN Negative (Negative)
[2018-10-25] MEDS: rOPINIRole 0.25 MG TAB(REQUIP) PO SCH (20:32)
[2018-10-25] MEDS: MIRTAZAPINE 15 MG TAB PO SCH (20:32)
[2018-10-25] MEDS: SERTRALINE 100 MG TAB PO SCH (20:32)
[2018-10-25 22:00] VITALS: BP 118/76
--- NOTE | 2018-10-25 23:30 | IPNPDOC ---
Subjective Date Seen The patient was seen on 10/25/18. Subjective Chief Complaint/HPI States she is feeling better today. She declined physical therapy, stating that she was tired. Also, her rectal prolapse can make ambulating uncomfortable. Constitutional: Reports: Fatigue; Denies: Chills, Fever Pulmonary: Reports: Cough; Denies: Dyspnea Cardiovascular: Denies: Chest Pain Gastrointestinal: Denies: Nausea, Vomiting, Diarrhea, Constipation Objective Physical Examination General Exam: Positive: Alert, Cooperative ENT Exam: Positive: Atraumatic Neck Exam: Positive: Supple Chest Exam: Positive: Rhonchi, Wheezing Heart Exam: Positive: Rate Normal, Normal S1, Normal S2 Abdomen Exam: Positive: Normal bowel sounds, Soft; Negative: Tenderness Skin Exam: Positive: Rash (Diffuse on upper extremity, across chest and back. Appears excoriated) Psych Exam: Positive: Mood NL Assessment /Plan Problems (1) Pneumonia Problem Text: 10/24 Change IV rocephin to PO cefdinir, change azithromycin to PO, reduce pred 40 to 30 mg daily. resp status improving, afebrile, improving leukocytosis. (2) Rash Problem Text: Rash was thought to have been petechial. CBC continues to show normal platelet level. Today appears as excoriations. (3) Rectal prolapse Status: Chronic Problem Text: Patient has chronic history of. Monitoring anemia. Likely secondary to GI blood loss. Repeat H-H later. No blood transfusion at this time. Patient states she would consent to it if needed. On medications for constipation. (4) Anemia Problem Text: 10/25 -- hemoglobin continues to hover around 8. May consider a transfusion if symptomatic tomorrow. 10/24 Hgb 8, monitor. 10/23 Likely has anemia secondary to blood loss. Continue iron. Hgb dropped to 7.6 today.Repeat H+H at 1400. No transfusion at this time. (5) Atrial fibrillation Problem Text: Not on anticoagulation on admission. Is on rate control with Lopressor 25 mg BID. (6) Hypothyroid Problem Text: Continue Synthroid. (7) Restless leg syndrome Problem Text: Continue Requip. Also wears pain patch, Fentanyl. (8) CHF (congestive heart failure) Problem Text: Last ECHO 06/22 EF 65%, diastolic. (9) Hyperlipemia Problem Text: Continue statin. (10) COPD (chronic obstructive pulmonary disease) Problem Text: Nebulizers q6h. (11) HTN (hypertension) Problem Text: Amlodipine, continue. Monitor Vitals. Plan/VTE VTE Prophylaxis Ordered?: Yes (Teds) VS, I&O, 24H, Fishbone Vital Signs/I&O Vital Signs Date Time Temp Pulse Resp B/P (MAP) Pulse Ox O2 Delivery O2 Flow Rate FiO2 10/25/18 22:00 98.7 80 18 118/76 (90) 92 10/22/18 03:19 Nasal Cannula 4.0 I&O- Last 24 Hours up to 6 AM 10/25/18 06:00 Intake Total 1265 ml Output Total 750 ml Balance 515 ml Laboratory Data 24H LABS Laboratory Tests 2 10/25/18 05:38: Nucleated Red Blood Cells % (auto) 0.0, Anion Gap 6L, Glomerular Filtration Rate 47.9, Blood Urea Nitrogen 30H, Creatinine 1.14, Sodium Level 140, Potassium Level 3.9, Chloride Level 113H, Carbon Dioxide Level 21, Calcium Level 7.7L CBC/BMP Laboratory Tests 10/25/18 05:38 Red Blood Count 2.72 L, Mean Corpuscular Volume 86.0, Mean Corpuscular Hemoglobin 28.7, Mean Corpuscular Hemoglobin Concent 33.3, Red Cell Distribution Width 17.2 H, Calcium Level 7.7 L Microbiology Microbiology 10/21/18 Blood Culture - Preliminary, Resulted No Growth after 72 hours. All specime... 10/21/18 Blood Culture - Preliminary, Resulted No Growth after 72 hours. All specime... 10/22/18 - Final, Complete 10/22/18 Gram Stain - Final, Complete 10/22/18 CSF Culture - Final, Complete MILTON ONVA DO Oct 25, 2018 23:30
[2018-10-26] MEDS: IPRATROPIUM 0.5MG/ALBUTEROL 2.5MG INH SOL UD 3ML (DUONEB)(J7620) NEB SCH ×4 (01:06→20:35)
[2018-10-26 06:00] VITALS: BP 110/68
[2018-10-26 06:44] LABS: HEMATOCRIT 23.9 % (36.0-47.0); HEMOGLOBIN 7.9 g/dl (12.0-15.5); MEAN CORPUSCULAR HEMOGLOBIN 28.5 pg (27.0-33.0); MEAN CORPUSCULAR HGB CONC 33.1 g/dl (32.0-36.5); MEAN CORPUSCULAR VOLUME 86.3 fl (80.0-96.0); PLATELET COUNT, AUTOMATED 176 10^3/uL (150-450); RED BLOOD COUNT 2.77 10^6/uL (4.00-5.40); WHITE BLOOD COUNT 8.6 10^3/uL (4.0-10.0)
[2018-10-26 06:59] LABS: CALCIUM LEVEL 7.8 MG/DL (8.8-10.2); CREATININE FOR GFR 1.02 MG/DL (0.55-1.30); GLOMERULAR FILTRATION RATE 54.4 (>32); POTASSIUM SERUM 3.9 MEQ/L (3.5-5.1)
[2018-10-26] MEDS: predniSONE 20 MG TAB PO SCH (08:50)
[2018-10-26] MEDS: METOPROLOL TART 25 MG TABLET PO SCH ×2 (08:50→20:03)
[2018-10-26] MEDS: AZITHROMYCIN 250 MG TAB PO SCH (08:51)
[2018-10-26] MEDS: levETIRAcetam 250MG TABLET (KEPPRA) PO SCH ×2 (08:51→20:04)
[2018-10-26] MEDS: LEVOTHYROXINE 50MCG TABLET (0.05MG) PO SCH (08:51)
[2018-10-26] MEDS: FERROUS SULFATE 325MG TAB PO SCH (08:51)
[2018-10-26] MEDS: SIMVASTATIN 20 MG TAB PO SCH (08:51)
[2018-10-26] MEDS: OMEPRAZOLE 20 MG CAP PO SCH ×2 (08:51→20:03)
[2018-10-26] MEDS: SENOKOT S TAB PO SCH ×2 (08:51→20:04)
[2018-10-26] MEDS: DICYCLOMINE 10 MG CAP PO SCH ×4 (08:51→20:04)
[2018-10-26] MEDS: CEFDINIR 300 MG CAP (OMNICEF) PO SCH (08:51)
[2018-10-26] MEDS: EUCERIN 120GM CREAM TOP SCH ×2 (08:52→20:05)
[2018-10-26] MEDS: MIRTAZAPINE 15 MG TAB PO SCH (20:03)
[2018-10-26] MEDS: rOPINIRole 0.25 MG TAB(REQUIP) PO SCH (20:03)
[2018-10-26] MEDS: MIRALAX *UNIT DOSE* 17GM PACKET PO PRN (20:04)
[2018-10-26] MEDS: SERTRALINE 100 MG TAB PO SCH (20:04)
--- NOTE | 2018-10-26 20:33 | IPNPDOC ---
Subjective Date Seen The patient was seen on 10/26/18. Subjective Chief Complaint/HPI Patient still reports some occasional rectal pain. Will try to work more with physical therapy. Laying comfortably in bed. Constitutional: Denies: Chills, Fever Pulmonary: Denies: Dyspnea Objective Physical Examination General Exam: Positive: Alert, Cooperative ENT Exam: Positive: Atraumatic Neck Exam: Positive: Supple Chest Exam: Positive: Rhonchi, Wheezing Heart Exam: Positive: Rate Normal, Normal S1, Normal S2 Abdomen Exam: Positive: Normal bowel sounds, Soft; Negative: Tenderness Skin Exam: Positive: Rash (Diffuse on upper extremity, across chest and back. Appears excoriated) Psych Exam: Positive: Mood NL Assessment /Plan Problems (1) Pneumonia Status: Acute Problem Text: 10/26 continue PO abx. monitor for fever. 10/24 Change IV rocephin to PO cefdinir, change azithromycin to PO, reduce pred 40 to 30 mg daily. resp status improving, afebrile, improving leukocytosis. (2) Rash Status: Chronic Problem Text: Rash was thought to have been petechial. CBC continues to show normal platelet level. Today appears as excoriations. (3) Rectal prolapse Status: Chronic Problem Text: Patient has chronic history of. Monitoring anemia. Likely secondary to GI blood loss. Repeat H-H later. No blood transfusion at this time. Patient states she would consent to it if needed. On medications for constipation. (4) Anemia Problem Text: 10/26 remains stable. Repeat in AM. consider transfusion, currently asymptomatic. 10/25 -- hemoglobin continues to hover around 8. May consider a transfusion if symptomatic tomorrow. 10/24 Hgb 8, monitor. 10/23 Likely has anemia secondary to blood loss. Continue iron. Hgb dropped to 7.6 today.Repeat H+H at 1400. No transfusion at this time. (5) Atrial fibrillation Status: Chronic Problem Text: Not on anticoagulation on admission. Is on rate control with Lopressor 25 mg BID. (6) Hypothyroid Status: Chronic Problem Text: Continue Synthroid. (7) Restless leg syndrome Problem Text: Continue Requip. Also wears pain patch, Fentanyl. (8) CHF (congestive heart failure) Problem Text: Last ECHO 06/22 EF 65%, diastolic. (9) Hyperlipemia Problem Text: Continue statin. (10) COPD (chronic obstructive pulmonary disease) Problem Text: Nebulizers q6h. (11) HTN (hypertension) Problem Text: Amlodipine, continue. Monitor Vitals. Plan/VTE VTE Prophylaxis Ordered?: Yes (Teds) VS, I&O, 24H, Fishbone Vital Signs/I&O Vital Signs Date Time Temp Pulse Resp B/P (MAP) Pulse Ox O2 Delivery O2 Flow Rate FiO2 10/26/18 20:03 86 122/82 10/26/18 06:00 98.3 16 92 10/22/18 03:19 Nasal Cannula 4.0 I&O- Last 24 Hours up to 6 AM 10/26/18 06:00 Intake Total 1050 ml Output Total 2148 ml Balance -1098 ml Laboratory Data 24H LABS Laboratory Tests 2 10/26/18 06:09: Nucleated Red Blood Cells % (auto) 0.0, Anion Gap 6L, Glomerular Filtration Rate 54.4, Blood Urea Nitrogen 26H, Creatinine 1.02, Sodium Level 141, Potassium Level 3.9, Chloride Level 112H, Carbon Dioxide Level 23, Calcium Level 7.8L CBC/BMP Laboratory Tests 10/26/18 06:09 Red Blood Count 2.77 L, Mean Corpuscular Volume 86.3, Mean Corpuscular Hemoglobin 28.5, Mean Corpuscular Hemoglobin Concent 33.1, Red Cell Distribution Width 17.2 H, Calcium Level 7.8 L Microbiology Microbiology 10/21/18 Blood Culture - Preliminary, Resulted No Growth after 72 hours. All specime... 10/21/18 Blood Culture - Preliminary, Resulted No Growth after 72 hours. All specime... 10/22/18 - Final, Complete 10/22/18 Gram Stain - Final, Complete 10/22/18 CSF Culture - Final, Complete GME ATTESTATION GME ATTESTATION My faculty preceptor for this patient encounter was physically present during the encounter and was fully available. All aspects of the patient interview, examination, medical decision making process, and medical care plan development were reviewed and approved by the faculty preceptor. The faculty preceptor is aware and concurs with the plan as stated in the body of this note and will attest to such by his/her cosignature. ATTENDING NOTE Patient remains comfortable. She does not participate in PT secondary to discomfort -- initially foot discomfort, now rectal discomfort. She has not listed fatigue as a reason not to participate in PT; denies dyspnea. In light of this, I don't know that transfusion will benefit her. Hemoglobin remains stable around 8. -- GEORGE RIVERA DO Oct 26, 2018 20:33 MILTON NOVA DO Oct 27, 2018 02:05
[2018-10-26 22:00] VITALS: BP 121/65
[2018-10-27] MEDS: IPRATROPIUM 0.5MG/ALBUTEROL 2.5MG INH SOL UD 3ML (DUONEB)(J7620) NEB SCH ×4 (01:55→18:21)
[2018-10-27 06:00] VITALS: BP 120/65
[2018-10-27 06:18] LABS: HEMATOCRIT 26.3 % (36.0-47.0); HEMOGLOBIN 8.5 g/dl (12.0-15.5); MEAN CORPUSCULAR HEMOGLOBIN 28.2 pg (27.0-33.0); MEAN CORPUSCULAR HGB CONC 32.3 g/dl (32.0-36.5); MEAN CORPUSCULAR VOLUME 87.4 fl (80.0-96.0); PLATELET COUNT, AUTOMATED 213 10^3/uL (150-450); RED BLOOD COUNT 3.01 10^6/uL (4.00-5.40); WHITE BLOOD COUNT 10.1 10^3/uL (4.0-10.0)
[2018-10-27 06:33] LABS: CALCIUM LEVEL 7.5 MG/DL (8.8-10.2); CREATININE FOR GFR 0.96 MG/DL (0.55-1.30); GLOMERULAR FILTRATION RATE 58.4 (>32); POTASSIUM SERUM 3.5 MEQ/L (3.5-5.1)
[2018-10-27] MEDS: FERROUS SULFATE 325MG TAB PO SCH (09:47)
[2018-10-27] MEDS: CEFDINIR 300 MG CAP (OMNICEF) PO SCH (09:47)
[2018-10-27] MEDS: SENOKOT S TAB PO SCH ×2 (09:47→20:55)
[2018-10-27] MEDS: levETIRAcetam 250MG TABLET (KEPPRA) PO SCH ×2 (09:47→20:55)
[2018-10-27] MEDS: AZITHROMYCIN 250 MG TAB PO SCH (09:47)
[2018-10-27] MEDS: DICYCLOMINE 10 MG CAP PO SCH ×4 (09:47→20:54)
[2018-10-27] MEDS: predniSONE 20 MG TAB PO SCH (09:47)
[2018-10-27] MEDS: OMEPRAZOLE 20 MG CAP PO SCH ×2 (09:47→20:55)
[2018-10-27] MEDS: LEVOTHYROXINE 50MCG TABLET (0.05MG) PO SCH (09:47)
[2018-10-27] MEDS: SIMVASTATIN 20 MG TAB PO SCH (09:48)
[2018-10-27] MEDS: fentaNYL 25 MCG/HR PATCH TOP SCH (09:49)
[2018-10-27] MEDS: FENTANYL REMOVAL DOCUMENTATION MISC XX SCH (09:50)
[2018-10-27] MEDS: METOPROLOL TART 25 MG TABLET PO SCH ×2 (09:52→20:56)
[2018-10-27] MEDS: EUCERIN 120GM CREAM TOP SCH ×2 (09:52→20:57)
[2018-10-27] MEDS ORDERED: MOM 30ML SUSPENSION UDC PO ONE (10:45)
[2018-10-27 14:00] VITALS: BP 135/78
--- NOTE | 2018-10-27 20:06 | IPNPDOC ---
Subjective Date Seen The patient was seen on 10/27/18. Subjective Chief Complaint/HPI Patient sitting in bed. She is ready to work more with PT and get out of bed. Pain is controlled at the moment. Denies shortness of breath, chest pain. Constitutional: Denies: Chills, Fever Pulmonary: Denies: Dyspnea Cardiovascular: Denies: Chest Pain Gastrointestinal: Denies: Abdominal Pain Objective Physical Examination General Exam: Positive: Alert, No Acute Distress ENT Exam: Positive: Atraumatic Neck Exam: Positive: Supple Chest Exam: Positive: Rhonchi, Wheezing Heart Exam: Positive: Rate Normal, Normal S1, Normal S2 Abdomen Exam: Positive: Normal bowel sounds, Soft; Negative: Tenderness Skin Exam: Positive: Rash (Diffuse on upper extremity, across chest and back. Appears excoriated) Psych Exam: Positive: Mood NL Assessment /Plan Assessment Patient continue to work with PT. Needs this prior to discharge. Problems (1) Pneumonia Status: Acute Problem Text: 10/27 Continue with PO abx. Taper PO steroid. 10/24 Change IV rocephin to PO cefdinir, change azithromycin to PO, reduce pred 40 to 30 mg daily. resp status improving, afebrile, improving leukocytosis. (2) Rash Status: Chronic Problem Text: Rash was thought to have been petechial. CBC continues to show normal platelet level. Today appears as excoriations. (3) Rectal prolapse Status: Chronic Problem Text: 10/27 continue to monitor hemoglobin and monitor for bleeding. Patient has chronic history of. Monitoring anemia. Likely secondary to GI blood loss. Repeat H-H later. No blood transfusion at this time. Patient states she would consent to it if needed. On medications for constipation. (4) Anemia Problem Text: 10/25 -- hemoglobin continues to hover around 8. May consider a transfusion if symptomatic tomorrow. 10/24 Hgb 8, monitor. 10/23 Likely has anemia secondary to blood loss. Continue iron. Hgb dropped to 7.6 today.Repeat H+H at 1400. No transfusion at this time. (5) Atrial fibrillation Status: Chronic Problem Text: 10/27 continue to hold starting any anticoagulation. Not on anticoagulation on admission. Is on rate control with Lopressor 25 mg BID. (6) Hypothyroid Status: Chronic Problem Text: Continue Synthroid. (7) Restless leg syndrome Problem Text: Continue Requip. Also wears pain patch, Fentanyl. (8) CHF (congestive heart failure) Problem Text: Last ECHO 06/22 EF 65%, diastolic. (9) Hyperlipemia Problem Text: Continue statin. (10) COPD (chronic obstructive pulmonary disease) Problem Text: Nebulizers q6h. (11) HTN (hypertension) Problem Text: Amlodipine, continue. Monitor Vitals. Plan/VTE VTE Prophylaxis Ordered?: Yes (Teds) VS, I&O, 24H, Fishbone Vital Signs/I&O Vital Signs Date Time Temp Pulse Resp B/P (MAP) Pulse Ox O2 Delivery O2 Flow Rate FiO2 10/27/18 14:00 97.9 79 18 135/78 (97) 97 10/22/18 03:19 Nasal Cannula 4.0 I&O- Last 24 Hours up to 6 AM 10/27/18 06:00 Intake Total 120 ml Output Total 1800 ml Balance -1680 ml Laboratory Data 24H LABS Laboratory Tests 2 10/27/18 05:39: Nucleated Red Blood Cells % (auto) 0.0, Anion Gap 7L, Glomerular Filtration Rate 58.4, Blood Urea Nitrogen 22H, Creatinine 0.96, Sodium Level 142, Potassium Level 3.5, Chloride Level 112H, Carbon Dioxide Level 23, Calcium Level 7.5L CBC/BMP Laboratory Tests 10/27/18 05:39 Red Blood Count 3.01 L, Mean Corpuscular Volume 87.4, Mean Corpuscular Hemoglobin 28.2, Mean Corpuscular Hemoglobin Concent 32.3, Red Cell Distribution Width 17.1 H, Calcium Level 7.5 L Microbiology Microbiology 10/21/18 Blood Culture - Final, Complete NO GROWTH AFTER 5 DAYS 10/21/18 Blood Culture - Final, Complete NO GROWTH AFTER 5 DAYS 10/22/18 - Final, Complete 10/22/18 Gram Stain - Final, Complete 10/22/18 CSF Culture - Final, Complete GME ATTESTATION GME ATTESTATION My faculty preceptor for this patient encounter was physically present during the encounter and was fully available. All aspects of the patient interview, examination, medical decision making process, and medical care plan development were reviewed and approved by the faculty preceptor. The faculty preceptor is aware and concurs with the plan as stated in the body of this note and will attest to such by his/her cosignature. ATTENDING NOTE She reports that she is doing pretty well, except for constipation. She had MOM this morning, and prune juice this afternoon. She reports that is not uncommon for her to go 4-5 days without a BM. She has done limited PT over the last several days. -- KARENT GEORGE LAWSON DO Oct 27, 2018 20:06 MILTON NOVA DO Oct 28, 2018 00:54
[2018-10-27] MEDS: MIRTAZAPINE 15 MG TAB PO SCH (20:54)
[2018-10-27] MEDS: SERTRALINE 100 MG TAB PO SCH (20:54)
[2018-10-27] MEDS: rOPINIRole 0.25 MG TAB(REQUIP) PO SCH (20:54)
[2018-10-27 22:00] VITALS: BP 143/80
[2018-10-28] MEDS: IPRATROPIUM 0.5MG/ALBUTEROL 2.5MG INH SOL UD 3ML (DUONEB)(J7620) NEB SCH ×4 (02:00→20:00)
[2018-10-28 06:00] VITALS: BP 133/73
[2018-10-28] MEDS: EUCERIN 120GM CREAM TOP SCH ×2 (09:00→20:45)
[2018-10-28] MEDS: predniSONE 20 MG TAB PO SCH (09:23)
[2018-10-28] MEDS: DICYCLOMINE 10 MG CAP PO SCH ×4 (09:23→20:44)
[2018-10-28] MEDS: AZITHROMYCIN 250 MG TAB PO SCH (09:24)
[2018-10-28] MEDS: FERROUS SULFATE 325MG TAB PO SCH (09:24)
[2018-10-28] MEDS: LEVOTHYROXINE 50MCG TABLET (0.05MG) PO SCH (09:24)
[2018-10-28] MEDS: METOPROLOL TART 25 MG TABLET PO SCH ×2 (09:24→20:44)
[2018-10-28] MEDS: OMEPRAZOLE 20 MG CAP PO SCH ×2 (09:24→20:43)
[2018-10-28] MEDS: SENOKOT S TAB PO SCH ×2 (09:24→20:44)
[2018-10-28] MEDS: SIMVASTATIN 20 MG TAB PO SCH (09:25)
[2018-10-28] MEDS: levETIRAcetam 250MG TABLET (KEPPRA) PO SCH ×2 (09:25→20:43)
[2018-10-28] MEDS: CEFDINIR 300 MG CAP (OMNICEF) PO SCH (09:25)
[2018-10-28] MEDS ORDERED: MOM 30ML SUSPENSION UDC PO PRN (13:45)
--- NOTE | 2018-10-28 13:53 | IPNPDOC ---
Subjective Date Seen The patient was seen on 10/28/18. Subjective Chief Complaint/HPI Patient sitting up in chair. Has worked with PT well. Feeling better. Denies and shortness of breath or chest pain. ENT: Denies: Head Aches Cardiovascular: Denies: Chest Pain Gastrointestinal: Denies: Abdominal Pain Objective Physical Examination General Exam: Positive: Alert, Cooperative ENT Exam: Positive: Atraumatic Neck Exam: Positive: Supple Chest Exam: Positive: Rhonchi, Wheezing Heart Exam: Positive: Rate Normal, Normal S1, Normal S2 Abdomen Exam: Positive: Normal bowel sounds, Soft; Negative: Tenderness Skin Exam: Positive: Rash (Diffuse on upper extremity, across chest and back. Appears excoriated) Psych Exam: Positive: Mood NL Assessment /Plan Problems (1) Pneumonia Status: Acute Problem Text: 10/28 Continue PO antibiotics, day 4. Tapering steroid 30 mg to 20 mg. Afebrile, normal white count. 10/24 Change IV rocephin to PO cefdinir, change azithromycin to PO, reduce pred 40 to 30 mg daily. resp status improving, afebrile, improving leukocytosis. (2) Rash Status: Chronic Problem Text: 10/28 Rash likely excoriations from scratching due to pruritus. Rash was thought to have been petechial. CBC continues to show normal platelet level. Today appears as excoriations. (3) Rectal prolapse Status: Chronic Problem Text: Patient has chronic history of. Monitoring anemia. Likely secondary to GI blood loss. Repeat H-H later. No blood transfusion at this time. Patient states she would consent to it if needed. On medications for constipation. (4) Anemia Problem Text: 10/28 Hgb stable above 8. Continue to monitor. Consider blood transfusion. 10/25 -- hemoglobin continues to hover around 8. May consider a transfusion if symptomatic tomorrow. 10/24 Hgb 8, monitor. 10/23 Likely has anemia secondary to blood loss. Continue iron. Hgb dropped to 7.6 today.Repeat H+H at 1400. No transfusion at this time. (5) Atrial fibrillation Status: Chronic Problem Text: 10/28 Patient has history of bleeding from rectal prolapse. Not starting anticoagulation at this time. Not on anticoagulation on admission. Is on rate control with Lopressor 25 mg BID. (6) Hypothyroid Status: Chronic Problem Text: Continue Synthroid. (7) Restless leg syndrome Problem Text: Continue Requip. Also wears pain patch, Fentanyl. (8) CHF (congestive heart failure) Problem Text: Last ECHO 06/22 EF 65%, diastolic. (9) Hyperlipemia Problem Text: Continue statin. (10) COPD (chronic obstructive pulmonary disease) Problem Text: Change Nebulizers to as needed and from q6 to BID (11) HTN (hypertension) Problem Text: Amlodipine, continue. Monitor Vitals. Plan/VTE VTE Prophylaxis Ordered?: Yes (Teds) VS, I&O, 24H, Fishbone Vital Signs/I&O Vital Signs Date Time Temp Pulse Resp B/P (MAP) Pulse Ox O2 Delivery O2 Flow Rate FiO2 10/28/18 09:24 80 136/75 10/28/18 06:00 98.0 18 95 10/22/18 03:19 Nasal Cannula 4.0 I&O- Last 24 Hours up to 6 AM 10/28/18 06:00 Intake Total 1320 ml Output Total 1250 ml Balance 70 ml Laboratory Data Microbiology Microbiology 10/21/18 Blood Culture - Final, Complete NO GROWTH AFTER 5 DAYS 10/21/18 Blood Culture - Final, Complete NO GROWTH AFTER 5 DAYS 10/22/18 - Final, Complete 10/22/18 Gram Stain - Final, Complete 10/22/18 CSF Culture - Final, Complete GME ATTESTATION GME ATTESTATION My faculty preceptor for this patient encounter was physically present during the encounter and was fully available. All aspects of the patient interview, examination, medical decision making process, and medical care plan development were reviewed and approved by the faculty preceptor. The faculty preceptor is aware and concurs with the plan as stated in the body of this note and will attest to such by his/her cosignature. GEORGE LAWSON DO Oct 28, 2018 13:53
[2018-10-28 14:00] VITALS: BP 119/74
[2018-10-28] MEDS ORDERED: IPRATROPIUM 0.5MG/ALBUTEROL 2.5MG INH SOL UD 3ML (DUONEB)(J7620) NEB PRN (14:00)
[2018-10-28] MEDS: rOPINIRole 0.25 MG TAB(REQUIP) PO SCH (20:44)
[2018-10-28] MEDS: SERTRALINE 100 MG TAB PO SCH (20:44)
[2018-10-28] MEDS: MIRTAZAPINE 15 MG TAB PO SCH (20:44)
[2018-10-28] MEDS: MIRALAX *UNIT DOSE* 17GM PACKET PO PRN (20:50)
[2018-10-28 22:00] VITALS: BP 122/64
[2018-10-29 06:00] VITALS: BP 121/68
[2018-10-29] MEDS: IPRATROPIUM 0.5MG/ALBUTEROL 2.5MG INH SOL UD 3ML (DUONEB)(J7620) NEB SCH ×2 (07:16→19:22)
[2018-10-29] MEDS ORDERED: BISACODYL 10 MG SUPP PR PRN (08:45)
[2018-10-29] MEDS: LEVOTHYROXINE 50MCG TABLET (0.05MG) PO SCH (08:49)
[2018-10-29] MEDS: predniSONE 20 MG TAB PO SCH (08:49)
[2018-10-29] MEDS: AZITHROMYCIN 250 MG TAB PO SCH (08:49)
[2018-10-29] MEDS: SIMVASTATIN 20 MG TAB PO SCH (08:49)
[2018-10-29] MEDS: levETIRAcetam 250MG TABLET (KEPPRA) PO SCH ×2 (08:50→20:34)
[2018-10-29] MEDS: CEFDINIR 300 MG CAP (OMNICEF) PO SCH (08:50)
[2018-10-29] MEDS: SENOKOT S TAB PO SCH ×2 (08:50→20:34)
[2018-10-29] MEDS: OMEPRAZOLE 20 MG CAP PO SCH ×2 (08:50→20:34)
[2018-10-29] MEDS: DICYCLOMINE 10 MG CAP PO SCH ×4 (08:50→20:35)
[2018-10-29] MEDS: METOPROLOL TART 25 MG TABLET PO SCH ×2 (08:50→20:35)
[2018-10-29] MEDS: FERROUS SULFATE 325MG TAB PO SCH (08:50)
[2018-10-29] MEDS: EUCERIN 120GM CREAM TOP SCH ×2 (08:51→20:34)
--- NOTE | 2018-10-29 08:51 | IPNPDOC ---
Subjective Date Seen The patient was seen on 10/29/18. Subjective Chief Complaint/HPI nausea this am, otherwise ok. Constitutional: Denies: Chills Eyes: Denies: Pain ENT: Denies: Head Aches Pulmonary: Denies: Dyspnea, Cough Cardiovascular: Denies: Chest Pain, Palpitations Gastrointestinal: Reports: Nausea (after breakfast today.), Constipation (no BM in days.) Neurological: Denies: Weakness, Change in speech Psych: Reports: Mood Normal Objective Physical Examination General Exam: Positive: Alert, Cooperative ENT Exam: Positive: Atraumatic Neck Exam: Positive: Supple Chest Exam: Positive: Rhonchi, Wheezing Heart Exam: Positive: Rate Normal, Normal S1, Normal S2 Abdomen Exam: Positive: Normal bowel sounds, Soft; Negative: Tenderness Skin Exam: Positive: Rash (Diffuse on upper extremity, across chest and back. Appears excoriated, chronic) Psych Exam: Positive: Mood NL Assessment /Plan Problems (1) Pneumonia Status: Acute Response to Treatment: Improving Problem Text: 10/28 Continue PO antibiotics, day 4. Tapering steroid 30 mg to 20 mg. Afebrile, normal white count. 10/24 Change IV rocephin to PO cefdinir, change azithromycin to PO, reduce pred 40 to 30 mg daily. resp status improving, afebrile, improving leukocytosis. (2) Rash Status: Chronic Response to Treatment: Stable Problem Text: 10/29 will add topical rx. 10/28 Rash likely excoriations from scratching due to pruritus. Rash was thought to have been petechial. CBC continues to show normal platelet level. Today appears as excoriations. (3) Rectal prolapse Status: Chronic Problem Text: Patient has chronic history of. Monitoring anemia. Likely secondary to GI blood loss. Repeat H-H later. No blood transfusion at this time. Patient states she would consent to it if needed. On medications for constipation. (4) Anemia Problem Text: 10/28 Hgb stable above 8. Continue to monitor. Consider blood transfusion. 10/25 -- hemoglobin continues to hover around 8. May consider a transfusion if symptomatic tomorrow. 10/24 Hgb 8, monitor. 10/23 Likely has anemia secondary to blood loss. Continue iron. Hgb dropped to 7.6 today.Repeat H+H at 1400. No transfusion at this time. (5) Atrial fibrillation Status: Chronic Response to Treatment: Stable Problem Specific Plan: Monitor Clinically Problem Text: 10/28 Patient has history of bleeding from rectal prolapse. Not starting anticoagulation at this time. Not on anticoagulation on admission. Is on rate control with Lopressor 25 mg BID. (6) Hypothyroid Status: Chronic Response to Treatment: Stable Problem Specific Plan: Monitor Clinically Problem Text: Continue Synthroid. (7) Restless leg syndrome Problem Text: Continue Requip. Also wears pain patch, Fentanyl. (8) CHF (congestive heart failure) Problem Text: Last ECHO 06/22 EF 65%, diastolic. (9) Hyperlipemia Problem Text: Continue statin. (10) COPD (chronic obstructive pulmonary disease) Problem Text: Change Nebulizers to as needed and from q6 to BID (11) HTN (hypertension) Problem Text: Amlodipine, continue. Monitor Vitals. Plan/VTE VTE Prophylaxis Ordered?: Yes (Teds) VS, I&O, 24H, Fishbone Vital Signs/I&O Vital Signs Date Time Temp Pulse Resp B/P (MAP) Pulse Ox O2 Delivery O2 Flow Rate FiO2 10/29/18 06:00 97.8 74 16 121/68 (85) 93 I&O- Last 24 Hours up to 6 AM 10/29/18 06:00 Intake Total 1080 ml Output Total 1700 ml Balance -620 ml Laboratory Data Microbiology Microbiology 10/21/18 Blood Culture - Final, Complete NO GROWTH AFTER 5 DAYS 10/21/18 Blood Culture - Final, Complete NO GROWTH AFTER 5 DAYS 10/22/18 - Final, Complete 10/22/18 Gram Stain - Final, Complete 10/22/18 CSF Culture - Final, Complete Jeremiah Hanna MD Oct 29, 2018 08:51
[2018-10-29] MEDS: BETAMETHASONE VAL 0.1% CR 15 GM TOP SCH ×2 (09:00→20:35)
[2018-10-29 14:00] VITALS: BP 139/63
[2018-10-29] MEDS: MIRTAZAPINE 15 MG TAB PO SCH (20:34)
[2018-10-29] MEDS: SERTRALINE 100 MG TAB PO SCH (20:34)
[2018-10-29] MEDS: rOPINIRole 0.25 MG TAB(REQUIP) PO SCH (20:35)
[2018-10-29 22:00] VITALS: BP 135/72
[2018-10-30 05:57] VITALS: BP 120/70
[2018-10-30] MEDS: IPRATROPIUM 0.5MG/ALBUTEROL 2.5MG INH SOL UD 3ML (DUONEB)(J7620) NEB SCH ×2 (06:31→20:00)
[2018-10-30] MEDS: levETIRAcetam 250MG TABLET (KEPPRA) PO SCH ×2 (09:35→20:26)
[2018-10-30] MEDS: SENOKOT S TAB PO SCH ×2 (09:35→20:27)
[2018-10-30] MEDS: METOPROLOL TART 25 MG TABLET PO SCH ×2 (09:35→20:27)
[2018-10-30] MEDS: OMEPRAZOLE 20 MG CAP PO SCH ×2 (09:36→20:26)
[2018-10-30] MEDS: DICYCLOMINE 10 MG CAP PO SCH ×4 (09:36→20:26)
[2018-10-30] MEDS: FERROUS SULFATE 325MG TAB PO SCH (09:36)
[2018-10-30] MEDS: EUCERIN 120GM CREAM TOP SCH ×2 (09:36→20:28)
[2018-10-30] MEDS: LEVOTHYROXINE 50MCG TABLET (0.05MG) PO SCH (09:36)
[2018-10-30] MEDS: CEFDINIR 300 MG CAP (OMNICEF) PO SCH (09:36)
[2018-10-30] MEDS: SIMVASTATIN 20 MG TAB PO SCH (09:36)
[2018-10-30] MEDS: predniSONE 20 MG TAB PO SCH (09:36)
[2018-10-30] MEDS: AZITHROMYCIN 250 MG TAB PO SCH (09:36)
[2018-10-30] MEDS: BETAMETHASONE VAL 0.1% CR 15 GM TOP SCH ×2 (09:37→20:28)
[2018-10-30] MEDS: fentaNYL 25 MCG/HR PATCH TOP SCH (09:38)
[2018-10-30] MEDS: FENTANYL REMOVAL DOCUMENTATION MISC XX SCH (09:41)
[2018-10-30 14:00] VITALS: BP 146/67
[2018-10-30] MEDS: PREPARATION H OINTMENT (HEMORRHOID) PR PRN (15:12)
--- NOTE | 2018-10-30 18:58 | IPNPDOC ---
Subjective Date Seen The patient was seen on 10/30/18. Subjective Chief Complaint/HPI Patient notes no cough or shortness of breath. Admits to rectal pain after BMs. Usually does not take anything for it. Really would like to have this repaired via surgery. Constitutional: Denies: Chills, Fever Pulmonary: Denies: Dyspnea Cardiovascular: Denies: Chest Pain Objective Physical Examination General Exam: Positive: Alert, Cooperative ENT Exam: Positive: Atraumatic Neck Exam: Positive: Supple Chest Exam: Positive: Rhonchi, Wheezing Heart Exam: Positive: Rate Normal, Normal S1, Normal S2 Abdomen Exam: Positive: Normal bowel sounds, Soft; Negative: Tenderness Skin Exam: Positive: Rash (Diffuse on upper extremity, across chest and back. Appears excoriated) Psych Exam: Positive: Mood NL Assessment /Plan Assessment Patient has a room at [facility] for acute rehab after discharge. If not discharged tomorrow then consider making her longterm. Problems (1) Pneumonia Status: Acute Problem Text: 10/30 Last day of abx tomorrow. Will make 10 days total. Patient is afebrile. Continue to taper steroid tomorrow to 10 mg daily from 20 mg. 10/27 Continue with PO abx. Taper PO steroid. 10/24 Change IV rocephin to PO cefdinir, change azithromycin to PO, reduce pred 40 to 30 mg daily. resp status improving, afebrile, improving leukocytosis. (2) Rash Status: Chronic Problem Text: 10/30 Rash continues to improve with lotions. Continue to monitor. Rash was thought to have been petechial. CBC continues to show normal platelet level. Today appears as excoriations. (3) Rectal prolapse Status: Chronic Problem Text: 10/30 Patient has pain following BMs. Starting patient on as needed Preparation H. Wanted to start topical nitroglycerin, however was not available. Patient was scheduled to have surgery in [place] next week. Has been postponed. Was scheduled to have stress test with Dr. Gupta office last week. Discussed that this will need to be rescheduled prior to rescheduling surgery. 10/27 continue to monitor hemoglobin and monitor for bleeding. Patient has chronic history of. Monitoring anemia. Likely secondary to GI blood loss. Repeat H-H later. No blood transfusion at this time. Patient states she would consent to it if needed. On medications for constipation. (4) Anemia Problem Text: 10/30 Hgb last checked was above 8. No active bleeding. No transfusions this admission. 10/25 -- hemoglobin continues to hover around 8. May consider a transfusion if symptomatic tomorrow. 10/24 Hgb 8, monitor. 10/23 Likely has anemia secondary to blood loss. Continue iron. Hgb dropped to 7.6 today.Repeat H+H at 1400. No transfusion at this time. (5) Atrial fibrillation Status: Chronic Problem Text: 10/30 No anticoagulation. On Metoprolol 25 mg BID. 10/27 continue to hold starting any anticoagulation. Not on anticoagulation on admission. Is on rate control with Lopressor 25 mg BID. (6) Hypothyroid Status: Chronic Problem Text: Continue Synthroid. (7) Restless leg syndrome Problem Text: Continue Requip. Also wears pain patch, Fentanyl. (8) CHF (congestive heart failure) Problem Text: Last ECHO 06/22 EF 65%, diastolic. (9) Hyperlipemia Problem Text: Continue statin. (10) COPD (chronic obstructive pulmonary disease) Problem Text: Nebulizers q6h. (11) HTN (hypertension) Problem Text: Amlodipine, continue. Monitor Vitals. Plan/VTE VTE Prophylaxis Ordered?: Yes (Teds) VS, I&O, 24H, Fishbone Vital Signs/I&O Vital Signs Date Time Temp Pulse Resp B/P (MAP) Pulse Ox O2 Delivery O2 Flow Rate FiO2 10/30/18 14:00 97.9 60 22 146/67 (93) 94 I&O- Last 24 Hours up to 6 AM 10/30/18 06:00 Intake Total 1520 ml Output Total 1400 ml Balance 120 ml Laboratory Data Microbiology Microbiology 10/21/18 Blood Culture - Final, Complete NO GROWTH AFTER 5 DAYS 10/21/18 Blood Culture - Final, Complete NO GROWTH AFTER 5 DAYS 10/22/18 - Final, Complete 10/22/18 Gram Stain - Final, Complete 10/22/18 CSF Culture - Final, Complete GME ATTESTATION GME ATTESTATION My faculty preceptor for this patient encounter was physically present during the encounter and was fully available. All aspects of the patient interview, examination, medical decision making process, and medical care plan development were reviewed and approved by the faculty preceptor. The faculty preceptor is aware and concurs with the plan as stated in the body of this note and will attest to such by his/her cosignature. GEORGE LAWSON DO Oct 30, 2018 18:58
[2018-10-30] MEDS: rOPINIRole 0.25 MG TAB(REQUIP) PO SCH (20:26)
[2018-10-30] MEDS: SERTRALINE 100 MG TAB PO SCH (20:26)
[2018-10-30] MEDS: MIRTAZAPINE 15 MG TAB PO SCH (20:26)
[2018-10-30] MEDS ORDERED: NITROGLYCERIN PR SCH (21:00)
[2018-10-30] MEDS ORDERED: AQUAPHOR PR SCH (21:00)
[2018-10-30 22:00] VITALS: BP 140/69
[2018-10-31 06:00] VITALS: BP 117/67
[2018-10-31 06:19] LABS: BASO % 0.2 % (0.0-1.0); EOS # 0.4 10^3/uL (0.0-0.50); EOS % 4.7 % (0.0-3.0); HEMATOCRIT 24.4 % (36.0-47.0); HEMOGLOBIN 7.9 g/dl (12.0-15.5); LYMPH # 2.7 10^3/uL (1.5-4.5); LYMPH % 30.6 % (24.0-44.0); MEAN CORPUSCULAR HEMOGLOBIN 28.9 pg (27.0-33.0); MEAN CORPUSCULAR HGB CONC 32.4 g/dl (32.0-36.5); MEAN CORPUSCULAR VOLUME 89.4 fl (80.0-96.0); MONO # 0.8 10^3/uL (0.0-0.8); MONO % 8.6 % (0.0-5.0); NEUTROPHILS # 4.9 10^3/uL (1.8-7.7); NEUTROPHILS % 55.6 % (36.0-66.0); PLATELET COUNT, AUTOMATED 246 10^3/uL (150-450); RED BLOOD COUNT 2.73 10^6/uL (4.00-5.40); WHITE BLOOD COUNT 8.9 10^3/uL (4.0-10.0)
[2018-10-31 06:46] LABS: ALBUMIN 1.8 GM/DL (3.2-5.2); BLOOD UREA NITROGEN 16 MG/DL (7-18); CALCIUM LEVEL 7.8 MG/DL (8.8-10.2); CARBON DIOXIDE LEVEL 29 MEQ/L (21-32); CHLORIDE LEVEL 108 MEQ/L (98-107); CREATININE FOR GFR 0.64 MG/DL (0.55-1.30); FERRITIN 155 NG/ML (8-252); GLOMERULAR FILTRATION RATE > 60.0 (>32); GLUCOSE, FASTING 79 MG/DL (70-100); IRON (FE) 50 UG/DL (50-170); PERCENT SATURATION 27.6 % (13.2-45.0); PHOSPHORUS LEVEL 2.4 MG/DL (2.5-4.9); SODIUM LEVEL 141 MEQ/L (136-145); TOTAL IRON BINDING CAPACITY 181 UG/DL (250-450)
[2018-10-31] MEDS: SENOKOT S TAB PO SCH (07:40)
[2018-10-31] MEDS: IPRATROPIUM 0.5MG/ALBUTEROL 2.5MG INH SOL UD 3ML (DUONEB)(J7620) NEB SCH (08:00)
[2018-10-31] MEDS: PREPARATION H OINTMENT (HEMORRHOID) PR PRN (08:49)
[2018-10-31] MEDS: EUCERIN 120GM CREAM TOP SCH (08:50)
[2018-10-31] MEDS: levETIRAcetam 250MG TABLET (KEPPRA) PO SCH (08:51)
[2018-10-31] MEDS: OMEPRAZOLE 20 MG CAP PO SCH (08:51)
[2018-10-31] MEDS: DICYCLOMINE 10 MG CAP PO SCH (08:51)
[2018-10-31] MEDS: LEVOTHYROXINE 50MCG TABLET (0.05MG) PO SCH (08:51)
[2018-10-31] MEDS: AZITHROMYCIN 250 MG TAB PO SCH (08:51)
[2018-10-31] MEDS: FERROUS SULFATE 325MG TAB PO SCH (08:51)
[2018-10-31] MEDS: SIMVASTATIN 20 MG TAB PO SCH (08:51)
[2018-10-31] MEDS: BETAMETHASONE VAL 0.1% CR 15 GM TOP SCH (08:55)
[2018-10-31 08:58] VITALS: BP 129/90
[2018-10-31] MEDS: METOPROLOL TART 25 MG TABLET PO SCH (08:58)
[2018-10-31] MEDS ORDERED: predniSONE 10 MG TAB PO SCH (09:00)
[2018-10-31] MEDS: CEFDINIR 300 MG CAP (OMNICEF) PO SCH (09:06)
[2018-10-31] MEDS ORDERED: Docusate Sod/Senna PO (09:34)
[2018-10-31] MEDS ORDERED: PREPOI PR (09:34)
[2018-10-31] MEDS ORDERED: IPRA0.00 NEB ×2 (09:34)
[2018-10-31] MEDS ORDERED: PRED10TA2 PO (09:34)
[2018-10-31] MEDS ORDERED: BISA10SU PR (09:34)
[2018-10-31] MEDS ORDERED: MILK120011 PO (09:34)
--- NOTE | 2018-10-31 12:00 | DSES ---
DATE OF ADMISSION: 10/22/2018 DATE OF DISCHARGE: 10/31/2018 PRIMARY CARE PROVIDER: Dr. Miguel Jamil ATTENDING PHYSICIAN: Dr. Salvador Varghese This is an 88-year-old female with a past medical history of coronary artery disease, congestive heart failure (CHF), atrial fibrillation, transient ischemic attack, hyperlipidemia, chronic obstructive pulmonary disease (COPD), arthritis, hypothyroidism, restless leg syndrome, who presented to the emergency department with a cough that she had been unclear for 2 days prior to her presentation. On presentation to the emergency department, oxygen saturations were in the low 80s. The patient was placed on 4 liters nasal cannula with improvement in her oxygen saturation. Workup in the emergency department included a chest x-ray, as well as a CT of the head. No evidence of acute stroke was noted. Chest x-ray showed a small right pleural effusion with a possibility of right lower lobe blooming infiltrate versus plate-like atelectasis. The patient was subsequently admitted to the family medicine service. HOSPITAL COURSE: The patient's torsemide and potassium supplements were held secondary to dehydration. Metoprolol was continued secondary to atrial fibrillation. The patient is not anticoagulated due to a history of rectal bleeding and chronic anemia. Aspirin was held secondary to a questionable purpura rash and cough. The patient was placed on nebulizers and prednisone for her COPD. She received several days of IV antibiotics and was transitioned over to oral antibiotics within the last few days and has tolerated them well. Oxygen has been weaned off with oxygen saturations in the 96% range. Vital signs have remained stable throughout. The patient has remained afebrile throughout hospitalization. CONSULTATIONS: None. PROCEDURES: The patient is status post a lumbar puncture. CSF fluid is negative for infection. IMAGING: Head CT proved positive for mild increase in CSF space over the left frontal lobe, representing a cystic hygroma. No evidence of acute stroke was noted. Chest x-ray as already stated. Foot x-ray was completed due to pain and a fall. There was no acute fracture or dislocation. The patient was deemed appropriate for rehabilitation secondary to poor mobility and physical debility and she is agreeable to this, which we are going to transition her to rehabilitation facility. PHYSICAL EXAMINATION: HEENT: Neck is supple without lymphadenopathy or jugular venous distention (JVD). CARDIOVASCULAR: Heart rate and rhythm are irregularly irregular. PULMONARY: Lungs are clear to auscultation with diminished breath sounds, bibasilar. ABDOMEN: Soft, nontender. EXTREMITIES: Bilateral lower extremities are without any edema. NEUROLOGIC: The patient is alert and oriented times three. DISCHARGE DIAGNOSES: 1. Pneumonia. 2. Chronic obstructive pulmonary disease (COPD) exacerbation. 3. Physical debility. SECONDARY DIAGNOSES: 1. Coronary artery disease. 2. Congestive heart failure (CHF) 3. Atrial fibrillation. 4. Transient ischemic attack. 5. Hyperlipidemia. 6. Arthritis. 7. Hypothyroidism. 8. Restless leg. PLAN: The patient will be discharged to rehabilitation facility. MEDICATIONS: - DuoNeb every 12 hours scheduled and every 6 hours as needed for shortness of breath or wheezing - Dulcolax suppository daily as needed for constipation - Senokot two tablets by mouth twice a day - milk of magnesia 30 mL by mouth daily as needed for constipation - prednisone 10 mg daily for the next 5 days - shark liver oil per rectum as needed for rectal prolapse - albuterol sulfate every 4 hours as needed for shortness of breath - amlodipine 2.5 mg - aspirin 81 mg by mouth daily - dicyclomine 10 mg by mouth four times a day - Fentanyl 25 mg patch transdermal every 3 days as needed for pain - ferrous sulfate 325 mg by mouth daily - Keppra 500 mg by mouth twice a day - Synthroid 50 mcg by mouth daily - metoclopramide 5 mg by mouth before food and nightly - metoprolol tartrate 25 mg by mouth twice a day - mirtazapine 30 mg by mouth at night - omeprazole 40 mg capsule by mouth twice a day - MiraLAX 17 grams by mouth daily as needed for constipation - potassium chloride 20 mEq by mouth twice a day - ropinirole 0.25 mg tablet by mouth at night - sertraline 100 mg by mouth at night - simvastatin 20 mg by mouth daily - torsemide 10 mg by mouth daily The patient is discharged in stable and satisfactory condition with no further questions at the time of the discharge. edited: 11/01/2018 0726 tay CANO
== END 2018-10-31 11:40 | DRG 194 ==
LOC: M ED 19:19 → EDBD 19:19 → M ED INP 10-22 03:24 → M ICU 10-22 07:43 → M PCU 10-22 23:09 → M MSPAV 10-23 16:11
PROVIDERS: ADMIT Internal Medicine; ATTEND Family Medicine
DX: J18.9 Pneumonia, unspecified organism (principal); I50.32 Chronic diastolic (congestive) heart failure; J44.1 Chronic obstructive pulmonary disease with (acute) exacerbation; J44.0 Chronic obstructive pulmonary disease with (acute) lower respiratory infection; I13.0 Hypertensive heart and chronic kidney disease with heart failure and stage 1 through stage 4 chronic kidney disease, or unspecified chronic kidney disease; R21 Rash and other nonspecific skin eruption; K62.3 Rectal prolapse; E03.9 Hypothyroidism, unspecified; G25.81 Restless legs syndrome; M19.90 Unspecified osteoarthritis, unspecified site; E78.5 Hyperlipidemia, unspecified; I25.10 Atherosclerotic heart disease of native coronary artery without angina pectoris; I48.91 Unspecified atrial fibrillation; E86.0 Dehydration; N18.3 Chronic kidney disease, stage 3 (moderate); Z79.899 Other long term (current) drug therapy; Z79.82 Long term (current) use of aspirin; Z86.73 Personal history of transient ischemic attack (TIA), and cerebral infarction without residual deficits; Z96.659 Presence of unspecified artificial knee joint; D64.9 Anemia, unspecified

== ENCOUNTER → 2018-11-02 | Outpatient (REF) ==
[~2018-11-02] MED LIST changes: +ALBU83IN INH; +AMLO25TA PO; +ASPI1TAB PO; +BISA10SU PR; +DICY10CA13 PO; +Docusate Sod/Senna PO; +FENT1DIS14 TD; +FERR325T3 PO; +IPRA0.00 NEB; +KEPP1TAB PO; +LEVO50TA5 PO; +METO25TA4 PO; +MILK120011 PO; +MIRA3350 PO; +OMEP40CA2 PO; +POTA20TA6 PO; +PRED10TA2 PO; +PREPOI PR; +REGL5TAB2 PO; +REME30TA PO; +ROPI0.253 PO; +SENN8.6T7 PO; +SIMV40TA2 PO; +TORS10TA3 PO; +ZOCO20TA PO; +ZOLO100T PO
[2018-11-02 10:27] LABS: HEMATOCRIT 25.3 % (36.0-47.0); HEMOGLOBIN 7.9 g/dl (12.0-15.5); MEAN CORPUSCULAR HEMOGLOBIN 28.8 pg (27.0-33.0); MEAN CORPUSCULAR HGB CONC 31.2 g/dl (32.0-36.5); MEAN CORPUSCULAR VOLUME 92.3 fl (80.0-96.0); PLATELET COUNT, AUTOMATED 219 10^3/uL (150-450); RED BLOOD COUNT 2.74 10^6/uL (4.00-5.40); WHITE BLOOD COUNT 7.9 10^3/uL (4.0-10.0)
[2018-11-02 10:52] LABS: BLOOD UREA NITROGEN 14 MG/DL (7-18); CALCIUM LEVEL 8.1 MG/DL (8.8-10.2); CARBON DIOXIDE LEVEL 32 MEQ/L (21-32); CHLORIDE LEVEL 105 MEQ/L (98-107); CREATININE FOR GFR 0.67 MG/DL (0.55-1.30); GLOMERULAR FILTRATION RATE > 60.0 (>32); GLUCOSE, FASTING 74 MG/DL (70-100); POTASSIUM SERUM 4.3 MEQ/L (3.5-5.1); SODIUM LEVEL 142 MEQ/L (136-145)
== END ==
PROVIDERS: ATTEND Family Medicine
DX: D64.9 Anemia, unspecified (principal)

== ENCOUNTER → 2018-11-06 | Outpatient (REF) ==
[2018-11-06 08:09] LABS: HEMATOCRIT 26.2 % (36.0-47.0); HEMOGLOBIN 8.1 g/dl (12.0-15.5); MEAN CORPUSCULAR HGB CONC 30.9 g/dl (32.0-36.5); MEAN CORPUSCULAR VOLUME 93.9 fl (80.0-96.0); PLATELET COUNT, AUTOMATED 200 10^3/uL (150-450); RED BLOOD COUNT 2.79 10^6/uL (4.00-5.40); WHITE BLOOD COUNT 10.5 10^3/uL (4.0-10.0)
[2018-11-06 08:41] LABS: BLOOD UREA NITROGEN 17 MG/DL (7-18); CALCIUM LEVEL 7.9 MG/DL (8.8-10.2); CARBON DIOXIDE LEVEL 30 MEQ/L (21-32); CHLORIDE LEVEL 103 MEQ/L (98-107); CREATININE FOR GFR 0.74 MG/DL (0.55-1.30); GLOMERULAR FILTRATION RATE > 60.0 (>32); GLUCOSE, FASTING 72 MG/DL (70-100); POTASSIUM SERUM 3.8 MEQ/L (3.5-5.1); SODIUM LEVEL 141 MEQ/L (136-145)
== END ==
PROVIDERS: ATTEND Family Medicine
DX: D64.9 Anemia, unspecified (principal); K62.5 Hemorrhage of anus and rectum

== ENCOUNTER → 2018-11-06 | Outpatient (REF) | payer MEDICARE, OTHER ==
[~2018-11-06] MED LIST changes: -/ADVA50050 IN; -/AMLO25TA OR; -/FENT25PA; -/MIRT30TA OR; -/PANT40TA; -/ROPI1TA OR; +ADVA1AER2 IN; -ASPI1TAB PO; +ASPI81TA26 PO; +FENT1DIS14; +MIRT1TAB21 OR; +NORV2TAB OR; +PROT1TAB2; +REQU1TAB16 OR; +SENN1TAB41 PO; -SENN8.6T7 PO
--- NOTE | 2018-11-06 17:01 | REP ---
Chest x-ray: AP sitting view: History: COPD. Comparison study: October 22, 2018. Findings: Hazy opacity seen at the bases bilaterally consistent with small bilateral pleural effusions. Mild cardiac enlargement is observed. No focal infiltrate is seen. Impression: Hazy opacity at the bases bilaterally consistent with small bilateral pleural effusions. No focal infiltrate is seen. Prominent heart. Electronically Signed by Miller Vasquez MD 11/06/2018 05:03 P
== END ==
PROVIDERS: ATTEND Family Medicine
DX: J44.9 Chronic obstructive pulmonary disease, unspecified (principal); J18.9 Pneumonia, unspecified organism

== ENCOUNTER → 2018-11-09 | Outpatient (REF) ==
[~2018-11-09] MED LIST changes: +/ADVA50050 IN; +/AMLO25TA OR; +/FENT25PA; +/MIRT30TA OR; +/PANT40TA; +/ROPI1TA OR; -ADVA1AER2 IN; +ASPI1TAB PO; -ASPI81TA26 PO; -FENT1DIS14; -MIRT1TAB21 OR; -NORV2TAB OR; -PROT1TAB2; -REQU1TAB16 OR; -SENN1TAB41 PO; +SENN8.6T7 PO
[2018-11-09 10:52] LABS: HEMATOCRIT 23.4 % (36.0-47.0); HEMOGLOBIN 7.4 g/dl (12.0-15.5); MEAN CORPUSCULAR HEMOGLOBIN 28.5 pg (27.0-33.0); MEAN CORPUSCULAR HGB CONC 31.6 g/dl (32.0-36.5); PLATELET COUNT, AUTOMATED 196 10^3/uL (150-450)
[2018-11-09 11:32] LABS: BLOOD UREA NITROGEN 18 MG/DL (7-18); CARBON DIOXIDE LEVEL 29 MEQ/L (21-32); CHLORIDE LEVEL 102 MEQ/L (98-107); CREATININE FOR GFR 0.84 MG/DL (0.55-1.30); GLOMERULAR FILTRATION RATE > 60.0 (>32); GLUCOSE, FASTING 69 MG/DL (70-100); POTASSIUM SERUM 3.8 MEQ/L (3.5-5.1); SODIUM LEVEL 140 MEQ/L (136-145)
== END ==
PROVIDERS: ATTEND Family Medicine
DX: D64.9 Anemia, unspecified (principal)

== ENCOUNTER → 2018-11-09 | Outpatient (REF) | PROVIDERS: ATTEND Physician Assistant | DX: D64.9 Anemia, unspecified (principal) ==

== ENCOUNTER → 2018-11-09 | Outpatient (REF) | payer MEDICARE, OTHER | LOC: M LAB REF 13:00 | PROVIDERS: ATTEND Family Medicine | DX: D64.9 Anemia, unspecified (principal) ==

== ENCOUNTER 2018-11-10 11:44 | Outpatient (CLI) | payer MEDICARE ==
[~2018-11-10] VITALS: Ht 157.5 cm; Wt 62.2 kg
[~2018-11-10 11:44] MED LIST changes: +ACETAMINOPHEN TAB 650MG DOSE (2X325MG) PO SCH; +diphenhydrAMINE 25 MG CAP PO SCH
[2018-11-10 12:00] VITALS: BP 116/81
[2018-11-10] MEDS ORDERED: TORSEMIDE 10 MG TABLET PO ONE (13:00)
== END 2018-11-10 18:30 | disposition home or self-care (01) ==
LOC: M OPCLI4PR 11:44 → M MS4PR 11:46 → M OPCLI4PR 18:30
PROVIDERS: ATTEND Physician Assistant
DX: D64.9 Anemia, unspecified (principal)
CPT/HCPCS: 36430; P9016

== ENCOUNTER → 2018-11-13 | Outpatient (REF) | payer MEDICARE, OTHER ==
[~2018-11-13] MED LIST changes: -ACETAMINOPHEN TAB 650MG DOSE (2X325MG) PO SCH; -diphenhydrAMINE 25 MG CAP PO SCH
[2018-11-13 10:24] LABS: HEMATOCRIT 32.6 % (36.0-47.0); HEMOGLOBIN 10.1 g/dl (12.0-15.5); MEAN CORPUSCULAR VOLUME 93.7 fl (80.0-96.0); PLATELET COUNT, AUTOMATED 216 10^3/uL (150-450); RED BLOOD COUNT 3.48 10^6/uL (4.00-5.40); WHITE BLOOD COUNT 6.8 10^3/uL (4.0-10.0)
[2018-11-13 10:49] LABS: BLOOD UREA NITROGEN 19 MG/DL (7-18); CARBON DIOXIDE LEVEL 31 MEQ/L (21-32); CHLORIDE LEVEL 105 MEQ/L (98-107); CREATININE FOR GFR 0.68 MG/DL (0.55-1.30); GLOMERULAR FILTRATION RATE > 60.0 (>32); GLUCOSE, FASTING 67 MG/DL (70-100); POTASSIUM SERUM 4.1 MEQ/L (3.5-5.1); SODIUM LEVEL 142 MEQ/L (136-145)
== END ==
PROVIDERS: ATTEND Physician Assistant
DX: D64.9 Anemia, unspecified (principal)

== ENCOUNTER → 2018-11-15 | Outpatient (REF) | payer MEDICARE | PROVIDERS: ATTEND Physician Assistant | DX: Z22.322 Carrier or suspected carrier of Methicillin resistant Staphylococcus aureus (principal) ==

== ENCOUNTER → 2018-11-16 | Outpatient (REF) | payer MEDICARE ==
[2018-11-16 08:27] LABS: HEMOGLOBIN 10.9 g/dl (12.0-15.5); MEAN CORPUSCULAR HGB CONC 31.1 g/dl (32.0-36.5); MEAN CORPUSCULAR VOLUME 93.1 fl (80.0-96.0); PLATELET COUNT, AUTOMATED 285 10^3/uL (150-450); RED BLOOD COUNT 3.76 10^6/uL (4.00-5.40); WHITE BLOOD COUNT 9.4 10^3/uL (4.0-10.0)
[2018-11-16 10:52] LABS: BLOOD UREA NITROGEN 23 MG/DL (7-18); CALCIUM LEVEL 8.4 MG/DL (8.8-10.2); CARBON DIOXIDE LEVEL 27 MEQ/L (21-32); CHLORIDE LEVEL 104 MEQ/L (98-107); CREATININE FOR GFR 0.84 MG/DL (0.55-1.30); GLOMERULAR FILTRATION RATE > 60.0 (>32); GLUCOSE, FASTING 69 MG/DL (70-100); POTASSIUM SERUM 3.8 MEQ/L (3.5-5.1); SODIUM LEVEL 142 MEQ/L (136-145)
== END ==
PROVIDERS: ATTEND Family Medicine
DX: D64.9 Anemia, unspecified (principal); K62.5 Hemorrhage of anus and rectum

== ENCOUNTER → 2018-11-20 | Outpatient (REF) ==
[2018-11-20 12:37] LABS: HEMATOCRIT 34.3 % (36.0-47.0); HEMOGLOBIN 10.7 g/dl (12.0-15.5); MEAN CORPUSCULAR HEMOGLOBIN 29.3 pg (27.0-33.0); MEAN CORPUSCULAR HGB CONC 31.2 g/dl (32.0-36.5); PLATELET COUNT, AUTOMATED 309 10^3/uL (150-450); RED BLOOD COUNT 3.65 10^6/uL (4.00-5.40); WHITE BLOOD COUNT 9.3 10^3/uL (4.0-10.0)
[2018-11-20 13:32] LABS: BLOOD UREA NITROGEN 21 MG/DL (7-18); CALCIUM LEVEL 8.6 MG/DL (8.8-10.2); CARBON DIOXIDE LEVEL 25 MEQ/L (21-32); CHLORIDE LEVEL 105 MEQ/L (98-107); CREATININE FOR GFR 0.91 MG/DL (0.55-1.30); GLOMERULAR FILTRATION RATE > 60.0 (>32); GLUCOSE, FASTING 132 MG/DL (70-100); POTASSIUM SERUM 3.9 MEQ/L (3.5-5.1); SODIUM LEVEL 139 MEQ/L (136-145)
== END ==
PROVIDERS: ATTEND Family Medicine
DX: D64.9 Anemia, unspecified (principal)

== ENCOUNTER → 2018-11-20 | Outpatient (REF) ==
[2018-11-21 09:41] LABS: APPEARANCE, URINE HAZY (CLEAR); BACTERIA, URINE AUTO 2+ (NEGATIVE); BILIRUBIN, URINE AUTO NEGATIVE (NEGATIVE); BLOOD, URINE BLOOD 1+ (NEGATIVE); COLOR, URINE YELLOW (YELLOW); GLUCOSE, URINE (UA) AUTO NEGATIVE (NEGATIVE); KETONE, URINE AUTO NEGATIVE (NEGATIVE); LEUKOCYTE ESTERASE, URINE AUTO 1+ (NEGATIVE); NITRITE, URINE AUTO NEGATIVE (NEGATIVE); PROTEIN, URINE AUTO 1+ mg/dL (NEGATIVE); RBC, URINE AUTO 3 /HPF (0-3); SPECIFIC GRAVITY URINE AUTO 1.006 (1.002-1.035); SQUAMOUS EPITHELIAL CELL UR AU 10 /HPF (0-6); UROBILINOGEN, URINE AUTO 0.2 mg/dL (0.0-2.0); WBC, URINE AUTO 5 /HPF (0-3)
== END ==
PROVIDERS: ATTEND Family Medicine
DX: Z22.322 Carrier or suspected carrier of Methicillin resistant Staphylococcus aureus (principal)

== ENCOUNTER → 2018-11-23 | Outpatient (REF) | payer MEDICARE ==
[2018-11-23 10:34] LABS: HEMATOCRIT 33.9 % (36.0-47.0); HEMOGLOBIN 10.6 g/dl (12.0-15.5); MEAN CORPUSCULAR HEMOGLOBIN 28.5 pg (27.0-33.0); MEAN CORPUSCULAR HGB CONC 31.3 g/dl (32.0-36.5); MEAN CORPUSCULAR VOLUME 91.1 fl (80.0-96.0); PLATELET COUNT, AUTOMATED 290 10^3/uL (150-450); RED BLOOD COUNT 3.72 10^6/uL (4.00-5.40); WHITE BLOOD COUNT 7.6 10^3/uL (4.0-10.0)
[2018-11-23 10:47] LABS: BLOOD UREA NITROGEN 21 MG/DL (7-18); CARBON DIOXIDE LEVEL 26 MEQ/L (21-32); CHLORIDE LEVEL 106 MEQ/L (98-107); CREATININE FOR GFR 0.89 MG/DL (0.55-1.30); GLOMERULAR FILTRATION RATE > 60.0 (>32); GLUCOSE, FASTING 80 MG/DL (70-100); POTASSIUM SERUM 4.4 MEQ/L (3.5-5.1); SODIUM LEVEL 141 MEQ/L (136-145)
== END ==
PROVIDERS: ATTEND Family Medicine
DX: D64.9 Anemia, unspecified (principal)

== ENCOUNTER → 2018-11-27 | Outpatient (REF) | payer MEDICARE ==
[2018-11-27 10:08] LABS: HEMATOCRIT 33.5 % (36.0-47.0); HEMOGLOBIN 10.3 g/dl (12.0-15.5); MEAN CORPUSCULAR HEMOGLOBIN 28.8 pg (27.0-33.0); MEAN CORPUSCULAR HGB CONC 30.7 g/dl (32.0-36.5); MEAN CORPUSCULAR VOLUME 93.6 fl (80.0-96.0); PLATELET COUNT, AUTOMATED 220 10^3/uL (150-450); RED BLOOD COUNT 3.58 10^6/uL (4.00-5.40); WHITE BLOOD COUNT 6.4 10^3/uL (4.0-10.0)
[2018-11-27 10:33] LABS: BLOOD UREA NITROGEN 21 MG/DL (7-18); CALCIUM LEVEL 9.1 MG/DL (8.8-10.2); CARBON DIOXIDE LEVEL 30 MEQ/L (21-32); CHLORIDE LEVEL 105 MEQ/L (98-107); CREATININE FOR GFR 0.76 MG/DL (0.55-1.30); GLOMERULAR FILTRATION RATE > 60.0 (>32); GLUCOSE, FASTING 78 MG/DL (70-100); POTASSIUM SERUM 4.5 MEQ/L (3.5-5.1); SODIUM LEVEL 141 MEQ/L (136-145)
== END ==
PROVIDERS: ATTEND Family Medicine
DX: D64.9 Anemia, unspecified (principal)

== ENCOUNTER → 2018-12-29 | Outpatient (REF) ==
[~2018-12-29] MED LIST changes: -/ADVA50050 IN; -/AMLO25TA OR; -/FENT25PA; -/MIRT30TA OR; -/PANT40TA; -/ROPI1TA OR; +ADVA1AER2 IN; -ASPI1TAB PO; +ASPI81TA26 PO; +FENT1DIS14; +MIRT1TAB21 OR; +NORV2TAB OR; +PROT1TAB2; +REQU1TAB16 OR; +SENN1TAB41 PO; -SENN8.6T7 PO
--- NOTE | 2018-12-29 16:07 | REP ---
Portable chest x-ray: Single view. History: Cough. Comparison study: November 06, 2018. Findings: The patient is rotated somewhat to the right for the current exposure. The aorta is calcific and tortuous. The heart is enlarged unchanged. No definite pleural effusion is seen. No infiltrate is seen. There is a skin fold projecting over the left chest. Impression: No focal infiltrate. Cardiomegaly. Electronically Signed by Miller Vasquez MD 12/29/2018 03:58 P
== END ==
PROVIDERS: ATTEND Family Medicine
DX: R05 Cough (principal)

== ENCOUNTER → 2018-12-30 | Outpatient (REF) | payer MEDICARE | LOC: M LAB 13:17 | PROVIDERS: ATTEND Family Medicine | DX: R05 Cough (principal) ==

== ENCOUNTER → 2019-01-02 | Outpatient (REF) | payer MEDICARE ==
[2019-01-02 08:45] LABS: HEMATOCRIT 29.1 % (36.0-47.0); HEMOGLOBIN 9.3 g/dl (12.0-15.5); MEAN CORPUSCULAR HEMOGLOBIN 28.8 pg (27.0-33.0); MEAN CORPUSCULAR VOLUME 90.1 fl (80.0-96.0); PLATELET COUNT, AUTOMATED 279 10^3/uL (150-450); RED BLOOD COUNT 3.23 10^6/uL (4.00-5.40); WHITE BLOOD COUNT 6.2 10^3/uL (4.0-10.0)
[2019-01-02 09:04] LABS: BLOOD UREA NITROGEN 18 MG/DL (7-18); CALCIUM LEVEL 8.7 MG/DL (8.8-10.2); CARBON DIOXIDE LEVEL 30 MEQ/L (21-32); CHLORIDE LEVEL 102 MEQ/L (98-107); CREATININE FOR GFR 0.54 MG/DL (0.55-1.30); GLOMERULAR FILTRATION RATE > 60.0 (>32); GLUCOSE, FASTING 76 MG/DL (70-100); POTASSIUM SERUM 4.1 MEQ/L (3.5-5.1); SODIUM LEVEL 139 MEQ/L (136-145)
== END ==
PROVIDERS: ATTEND Family Medicine
DX: D64.9 Anemia, unspecified (principal)

== ENCOUNTER → 2019-01-09 | Outpatient (REF) ==
[2019-01-09 10:50] LABS: HEMATOCRIT 32.1 % (36.0-47.0); HEMOGLOBIN 9.8 g/dl (12.0-15.5); MEAN CORPUSCULAR HEMOGLOBIN 28.1 pg (27.0-33.0); MEAN CORPUSCULAR HGB CONC 30.5 g/dl (32.0-36.5); PLATELET COUNT, AUTOMATED 325 10^3/uL (150-450); RED BLOOD COUNT 3.49 10^6/uL (4.00-5.40); WHITE BLOOD COUNT 8.2 10^3/uL (4.0-10.0)
[2019-01-09 10:51] LABS: BLOOD UREA NITROGEN 11 MG/DL (7-18); CALCIUM LEVEL 7.9 MG/DL (8.8-10.2); CARBON DIOXIDE LEVEL 31 MEQ/L (21-32); CHLORIDE LEVEL 105 MEQ/L (98-107); GLOMERULAR FILTRATION RATE > 60.0 (>32); GLUCOSE, FASTING 129 MG/DL (70-100); POTASSIUM SERUM 3.9 MEQ/L (3.5-5.1); SODIUM LEVEL 141 MEQ/L (136-145)
== END ==
PROVIDERS: ATTEND Family Medicine
DX: D64.9 Anemia, unspecified (principal)

== ENCOUNTER → 2019-01-16 | Outpatient (REF) ==
[2019-01-16 09:29] LABS: HEMATOCRIT 30.7 % (36.0-47.0); HEMOGLOBIN 9.6 g/dl (12.0-15.5); MEAN CORPUSCULAR HEMOGLOBIN 28.8 pg (27.0-33.0); MEAN CORPUSCULAR HGB CONC 31.3 g/dl (32.0-36.5); MEAN CORPUSCULAR VOLUME 92.2 fl (80.0-96.0); PLATELET COUNT, AUTOMATED 249 10^3/uL (150-450); RED BLOOD COUNT 3.33 10^6/uL (4.00-5.40); WHITE BLOOD COUNT 6.5 10^3/uL (4.0-10.0)
[2019-01-16 09:53] LABS: BLOOD UREA NITROGEN 14 MG/DL (7-18); CALCIUM LEVEL 8.8 MG/DL (8.8-10.2); CARBON DIOXIDE LEVEL 28 MEQ/L (21-32); CHLORIDE LEVEL 103 MEQ/L (98-107); CREATININE FOR GFR 0.61 MG/DL (0.55-1.30); GLOMERULAR FILTRATION RATE > 60.0 (>32); GLUCOSE, FASTING 129 MG/DL (70-100); POTASSIUM SERUM 3.9 MEQ/L (3.5-5.1); SODIUM LEVEL 139 MEQ/L (136-145)
== END ==
PROVIDERS: ATTEND Family Medicine
DX: D64.9 Anemia, unspecified (principal)

== ENCOUNTER → 2019-01-17 | Outpatient (REF) ==
--- NOTE | 2019-01-17 14:46 | REP ---
Chest one-view HISTORY: Shortness of breath Comparison: 12/29/2018 Parenchymal densities are present in the lower lobes consistent with bibasilar atelectasis or infiltrates. Small bilateral pleural effusions are present. The cardiac silhouette is enlarged. The heart is normal in size. The pulmonary vasculature is normal in appearance. Impression: 1. Bibasilar atelectasis or infiltrates. 2. Small bilateral pleural effusions. 3. Cardiomegaly. Electronically Signed by Diony Bills MD 01/17/2019 02:38 P
== END ==
PROVIDERS: ATTEND Family Medicine
DX: R06.02 Shortness of breath (principal)

== ENCOUNTER → 2019-01-23 | Outpatient (REF) ==
[2019-01-23 09:10] LABS: BLOOD UREA NITROGEN 14 MG/DL (7-18); CALCIUM LEVEL 8.9 MG/DL (8.8-10.2); CARBON DIOXIDE LEVEL 31 MEQ/L (21-32); CHLORIDE LEVEL 102 MEQ/L (98-107); CREATININE FOR GFR 0.59 MG/DL (0.55-1.30); GLOMERULAR FILTRATION RATE > 60.0 (>32); GLUCOSE, FASTING 97 MG/DL (70-100); NT-PRO BNP 4962 PG/ML (<450); POTASSIUM SERUM 3.3 MEQ/L (3.5-5.1); SODIUM LEVEL 141 MEQ/L (136-145)
--- NOTE | 2019-01-23 12:51 | REP ---
Chest one-view HISTORY: Bilateral effusions Comparison: 05/20/2019 Pleural densities are present in the lower lobes consistent with bibasilar atelectasis or infiltrates that a decreased compared to the previous studies. Small bilateral pleural effusions are present decreased compared to the previous study. The cardiac silhouette is enlarged. The pulmonary vasculature is normal in appearance. Impression: 1. Bibasilar atelectasis or infiltrates decreased compared to the previous study. 2. Small bilateral pleural effusions decreased compared to the previous study. 3. Cardiomegaly. Electronically Signed by Diony Bills MD 01/23/2019 12:42 P
== END ==
PROVIDERS: ATTEND Family Medicine
DX: I50.9 Heart failure, unspecified (principal)

== ENCOUNTER → 2019-02-07 | Outpatient (REF) | payer MEDICARE ==
[2019-02-07 12:42] LABS: BASO % 0.3 % (0.0-1.0); EOS # 0.1 10^3/uL (0.0-0.50); EOS % 1.6 % (0.0-3.0); HEMATOCRIT 29.1 % (36.0-47.0); LYMPH # 0.9 10^3/uL (1.5-4.5); LYMPH % 13.7 % (24.0-44.0); MEAN CORPUSCULAR HEMOGLOBIN 28.4 pg (27.0-33.0); MEAN CORPUSCULAR HGB CONC 30.9 g/dl (32.0-36.5); MEAN CORPUSCULAR VOLUME 91.8 fl (80.0-96.0); MONO # 0.4 10^3/uL (0.0-0.8); MONO % 6.2 % (0.0-5.0); NEUTROPHILS % 77.9 % (36.0-66.0); PLATELET COUNT, AUTOMATED 184 10^3/uL (150-450); RED BLOOD COUNT 3.17 10^6/uL (4.00-5.40); WHITE BLOOD COUNT 6.4 10^3/uL (4.0-10.0)
[2019-02-07 13:14] LABS: ALBUMIN 2.6 GM/DL (3.2-5.2); ALT/SGPT 19 U/L (12-78); BILIRUBIN,TOTAL 0.3 MG/DL (0.2-1.0); BLOOD UREA NITROGEN 15 MG/DL (7-18); CARBON DIOXIDE LEVEL 28 MEQ/L (21-32); CHLORIDE LEVEL 109 MEQ/L (98-107); CREATININE FOR GFR 0.59 MG/DL (0.55-1.30); GLOMERULAR FILTRATION RATE > 60.0 (>32); GLUCOSE, FASTING 97 MG/DL (70-100); POTASSIUM SERUM 3.3 MEQ/L (3.5-5.1); SODIUM LEVEL 144 MEQ/L (136-145); TOTAL PROTEIN 5.5 GM/DL (6.4-8.2)
--- NOTE | 2019-02-07 14:10 | REP ---
REASON: Abdominal pain. COMPARISON: None. FINDINGS: KUB shows the intestinal gas pattern to be nonspecific. The organ silhouettes insofar as delineated are unremarkable. There is no evidence of free intraperitoneal air. IMPRESSION: Nonspecific. Electronically Signed by Luis Lin DO 02/07/2019 04:57 P
[2019-02-07 16:28] LABS: PERCENT SATURATION 21.7 % (13.2-45.0)
[2019-02-07 16:34] LABS: FOLATE 19.8 NG/ML (>5.4)
== END ==
PROVIDERS: ATTEND Physician Assistant
DX: R10.84 Generalized abdominal pain (principal); I50.9 Heart failure, unspecified; R05 Cough

== ENCOUNTER → 2019-02-12 | Outpatient (REF) | payer MEDICARE ==
[2019-02-12 09:43] LABS: HEMATOCRIT 31.9 % (36.0-47.0); MEAN CORPUSCULAR HEMOGLOBIN 29.1 pg (27.0-33.0); MEAN CORPUSCULAR HGB CONC 31.3 g/dl (32.0-36.5); MEAN CORPUSCULAR VOLUME 92.7 fl (80.0-96.0); PLATELET COUNT, AUTOMATED 249 10^3/uL (150-450); RED BLOOD COUNT 3.44 10^6/uL (4.00-5.40); WHITE BLOOD COUNT 8.1 10^3/uL (4.0-10.0)
[2019-02-12 10:17] LABS: BLOOD UREA NITROGEN 13 MG/DL (7-18); CALCIUM LEVEL 8.4 MG/DL (8.8-10.2); CARBON DIOXIDE LEVEL 29 MEQ/L (21-32); CHLORIDE LEVEL 99 MEQ/L (98-107); CREATININE FOR GFR 0.72 MG/DL (0.55-1.30); GLOMERULAR FILTRATION RATE > 60.0 (>32); GLUCOSE, FASTING 166 MG/DL (70-100); NT-PRO BNP 6541 PG/ML (<450); POTASSIUM SERUM 4.4 MEQ/L (3.5-5.1); SODIUM LEVEL 136 MEQ/L (136-145)
== END ==
PROVIDERS: ATTEND Family Medicine
DX: R06.02 Shortness of breath (principal)

== ENCOUNTER → 2019-02-12 | Outpatient (CLI) | payer MEDICARE, MEDICAID ==
--- NOTE | 2019-02-12 12:35 | REP ---
CT ABDOMEN/PELVIS WITHOUT CONTRAST: CT abdomen/pelvis is performed without oral or IV contrast. Sagittal and coronal reconstruction images are performed. Comparison is made with prior study of 08/25/2018. There is mild cardiomegaly. There are moderate bilateral pleural effusions with bibasilar atelectasis/infiltrate. Calcified subcarinal lymph nodes are present, and there are a few right hilar calcified lymph nodes. Calcified granulomas are seen in the liver and spleen. Patient has had a prior cholecystectomy. Adrenal glands are unremarkable. Pancreas is grossly unremarkable. The kidneys are grossly unremarkable. There is ectasia of the abdominal aorta with moderate atherosclerotic calcification, maximum AP diameter 2.6 cm. No gross adenopathy is seen. No free air or ascites is seen. No definite bowel thickening is seen. A new ostotomy is seen in the left lower quadrant. There is sigmoid diverticulosis present. I see no pelvic mass. Urinary bladder is mildly distended and grossly unremarkable. There is diffuse edema in the posterior pelvis which appears similar to the prior study. There are degenerative changes of the spine. There are compression deformities of T9, T10, and T12 vertebral bodies, the T9 and T10 compression deformities have increased since prior studies. IMPRESSION: New moderate bilateral effusions with adjacent bibasilar atelectasis/infiltrate. New ostomy in the left lower quadrant. Stable edema in the posterior pelvis. Increased compression of T9 and T10 vertebral bodies compared to prior studies. No other acute findings compared to the prior exam. Electronically Signed by Daniel Chavez MD 02/13/2019 11:33 A
== END ==
LOC: M RAD 11:13
PROVIDERS: ATTEND Physician Assistant
DX: J98.11 Atelectasis (principal); R10.9 Unspecified abdominal pain; R06.02 Shortness of breath

== ENCOUNTER → 2019-02-14 | Outpatient (REF) | payer MEDICARE, MEDICAID ==
[2019-02-14 09:23] LABS: BLOOD UREA NITROGEN 22 MG/DL (7-18); CALCIUM LEVEL 8.7 MG/DL (8.8-10.2); CARBON DIOXIDE LEVEL 32 MEQ/L (21-32); CHLORIDE LEVEL 100 MEQ/L (98-107); CREATININE FOR GFR 0.58 MG/DL (0.55-1.30); GLOMERULAR FILTRATION RATE > 60.0 (>32); GLUCOSE, FASTING 92 MG/DL (70-100); NT-PRO BNP 3488 PG/ML (<450); POTASSIUM SERUM 3.8 MEQ/L (3.5-5.1); SODIUM LEVEL 140 MEQ/L (136-145)
== END ==
PROVIDERS: ATTEND Family Medicine
DX: I50.9 Heart failure, unspecified (principal)

== ENCOUNTER → 2019-02-27 | Outpatient (REF) | payer MEDICARE, MEDICAID ==
[2019-02-27 10:00] LABS: HEMATOCRIT 31.5 % (36.0-47.0); HEMOGLOBIN 9.6 g/dl (12.0-15.5); MEAN CORPUSCULAR HEMOGLOBIN 27.7 pg (27.0-33.0); MEAN CORPUSCULAR HGB CONC 30.5 g/dl (32.0-36.5); MEAN CORPUSCULAR VOLUME 90.8 fl (80.0-96.0); PLATELET COUNT, AUTOMATED 213 10^3/uL (150-450); RED BLOOD COUNT 3.47 10^6/uL (4.00-5.40); WHITE BLOOD COUNT 5.9 10^3/uL (4.0-10.0)
[2019-02-27 10:31] LABS: BLOOD UREA NITROGEN 17 MG/DL (7-18); CALCIUM LEVEL 8.7 MG/DL (8.8-10.2); CARBON DIOXIDE LEVEL 30 MEQ/L (21-32); CHLORIDE LEVEL 105 MEQ/L (98-107); GLOMERULAR FILTRATION RATE > 60.0 (>32); GLUCOSE, FASTING 83 MG/DL (70-100); POTASSIUM SERUM 4.1 MEQ/L (3.5-5.1); SODIUM LEVEL 141 MEQ/L (136-145)
== END ==
PROVIDERS: ATTEND Family Medicine
DX: D64.9 Anemia, unspecified (principal)

== ENCOUNTER → 2019-03-05 | Outpatient (REF) | payer MEDICARE, MEDICAID ==
--- NOTE | 2019-03-05 16:31 | REP ---
CHEST, SINGLE VIEW: Single view of the chest was performed and compared to prior study of 02/15/2019. There is cardiomegaly and there appears to be vascular congestion and diffuse interstitial edema. There are bibasilar alveolar infiltrates and effusions. Findings are most consistent with CHF and pulmonary edema. IMPRESSION: Findings consistent with CHF and pulmonary edema. There are bilateral effusions. Electronically Signed by Daniel Chavez MD 03/06/2019 11:40 A
== END ==
PROVIDERS: ATTEND Family Medicine
DX: J81.1 Chronic pulmonary edema (principal); I51.7 Cardiomegaly; I50.9 Heart failure, unspecified; R06.02 Shortness of breath; Z87.09 Personal history of other diseases of the respiratory system

== ENCOUNTER → 2019-03-06 | Outpatient (REF) | payer MEDICARE, MEDICAID ==
[2019-03-06 12:08] LABS: HEMATOCRIT 35.6 % (36.0-47.0); HEMOGLOBIN 11.1 g/dl (12.0-15.5); MEAN CORPUSCULAR HEMOGLOBIN 29.1 pg (27.0-33.0); MEAN CORPUSCULAR HGB CONC 31.2 g/dl (32.0-36.5); MEAN CORPUSCULAR VOLUME 93.4 fl (80.0-96.0); PLATELET COUNT, AUTOMATED 248 10^3/uL (150-450); RED BLOOD COUNT 3.81 10^6/uL (4.00-5.40)
[2019-03-06 12:52] LABS: BLOOD UREA NITROGEN 17 MG/DL (7-18); CALCIUM LEVEL 8.9 MG/DL (8.8-10.2); CARBON DIOXIDE LEVEL 30 MEQ/L (21-32); CHLORIDE LEVEL 100 MEQ/L (98-107); CREATININE FOR GFR 0.73 MG/DL (0.55-1.30); GLOMERULAR FILTRATION RATE > 60.0 (>32); GLUCOSE, FASTING 87 MG/DL (70-100); NT-PRO BNP 4259 PG/ML (<450); POTASSIUM SERUM 3.4 MEQ/L (3.5-5.1); SODIUM LEVEL 139 MEQ/L (136-145)
== END ==
PROVIDERS: ATTEND Family Medicine
DX: I50.9 Heart failure, unspecified (principal)

== ENCOUNTER → 2019-03-13 | Outpatient (REF) | payer MEDICARE, MEDICAID ==
[2019-03-13 09:08] LABS: HEMATOCRIT 31.1 % (36.0-47.0); HEMOGLOBIN 9.9 g/dl (12.0-15.5); MEAN CORPUSCULAR HEMOGLOBIN 28.1 pg (27.0-33.0); MEAN CORPUSCULAR HGB CONC 31.8 g/dl (32.0-36.5); MEAN CORPUSCULAR VOLUME 88.4 fl (80.0-96.0); PLATELET COUNT, AUTOMATED 196 10^3/uL (150-450); RED BLOOD COUNT 3.52 10^6/uL (4.00-5.40); WHITE BLOOD COUNT 5.4 10^3/uL (4.0-10.0)
[2019-03-13 09:31] LABS: BLOOD UREA NITROGEN 19 MG/DL (7-18); CARBON DIOXIDE LEVEL 29 MEQ/L (21-32); CHLORIDE LEVEL 115 MEQ/L (98-107); GLOMERULAR FILTRATION RATE > 60.0 (>32); GLUCOSE, FASTING 83 MG/DL (70-100); NT-PRO BNP 2827 PG/ML (<450); POTASSIUM SERUM 3.2 MEQ/L (3.5-5.1); SODIUM LEVEL 135 MEQ/L (136-145)
--- NOTE | 2019-03-13 11:15 | REP ---
PORTABLE CHEST X-RAY: SITTING AP VIEW. HISTORY: CHF. COMPARISON STUDY: March 05, 2019 FINDINGS: There is blunting of the right lateral pleural angle indicating right pleural effusion. A small quantity of subpulmonic fluid is suspected on the left as well. Moderate cardiomegaly is again observed, unchanged. Pulmonary vasculature is not increased. No focal infiltrate is seen. Vascular calcification is seen in the aorta. There is diffuse osteopenia. No focal infiltrate. IMPRESSION: CHF pattern with cardiomegaly and small bilateral effusions. These are improved from the March 05, 2019 study. Electronically Signed by Miller Vasquez MD 03/13/2019 04:52 P
== END ==
PROVIDERS: ATTEND Family Medicine
DX: D64.9 Anemia, unspecified (principal); I50.9 Heart failure, unspecified

== ENCOUNTER → 2019-03-15 | Outpatient (REF) | payer MEDICARE, MEDICAID | PROVIDERS: ATTEND Family Medicine | DX: E87.6 Hypokalemia (principal) ==

== ENCOUNTER → 2019-03-19 | Outpatient (REF) | payer MEDICARE, MEDICAID ==
[2019-03-19 10:37] LABS: BLOOD UREA NITROGEN 19 MG/DL (7-18); CARBON DIOXIDE LEVEL 32 MEQ/L (21-32); CHLORIDE LEVEL 106 MEQ/L (98-107); GLOMERULAR FILTRATION RATE > 60.0 (>32); GLUCOSE, FASTING 75 MG/DL (70-100); POTASSIUM SERUM 4.4 MEQ/L (3.5-5.1); SODIUM LEVEL 141 MEQ/L (136-145)
== END ==
PROVIDERS: ATTEND Family Medicine
DX: I50.9 Heart failure, unspecified (principal)

== ENCOUNTER → 2019-04-17 | Outpatient (REF) | payer MEDICARE, MEDICAID ==
[2019-04-17 09:50] LABS: HEMATOCRIT 31.7 % (36.0-47.0); HEMOGLOBIN 9.8 g/dl (12.0-15.5); MEAN CORPUSCULAR HEMOGLOBIN 27.6 pg (27.0-33.0); MEAN CORPUSCULAR HGB CONC 30.9 g/dl (32.0-36.5); MEAN CORPUSCULAR VOLUME 89.3 fl (80.0-96.0); PLATELET COUNT, AUTOMATED 176 10^3/uL (150-450); RED BLOOD COUNT 3.55 10^6/uL (4.00-5.40); WHITE BLOOD COUNT 5.1 10^3/uL (4.0-10.0)
[2019-04-17 10:19] LABS: BLOOD UREA NITROGEN 22 MG/DL (7-18); CALCIUM LEVEL 8.5 MG/DL (8.8-10.2); CARBON DIOXIDE LEVEL 25 MEQ/L (21-32); CHLORIDE LEVEL 108 MEQ/L (98-107); CREATININE FOR GFR 0.77 MG/DL (0.55-1.30); GLOMERULAR FILTRATION RATE > 60.0 (>32); GLUCOSE, FASTING 160 MG/DL (70-100); POTASSIUM SERUM 4.3 MEQ/L (3.5-5.1); SODIUM LEVEL 142 MEQ/L (136-145)
== END ==
PROVIDERS: ATTEND Family Medicine
DX: D64.9 Anemia, unspecified (principal)

== ENCOUNTER → 2019-04-24 | Outpatient (REF) | payer MEDICARE, MEDICAID ==
[2019-04-24 19:02] LABS: BLOOD UREA NITROGEN 25 MG/DL (7-18); CARBON DIOXIDE LEVEL 28 MEQ/L (21-32); CHLORIDE LEVEL 108 MEQ/L (98-107); CREATININE FOR GFR 0.82 MG/DL (0.55-1.30); GLOMERULAR FILTRATION RATE > 60.0 (>32); GLUCOSE, FASTING 102 MG/DL (70-100); HEMATOCRIT 36.2 % (36.0-47.0); HEMOGLOBIN 11.2 g/dl (12.0-15.5); MEAN CORPUSCULAR HEMOGLOBIN 27.8 pg (27.0-33.0); MEAN CORPUSCULAR HGB CONC 30.9 g/dl (32.0-36.5); MEAN CORPUSCULAR VOLUME 89.8 fl (80.0-96.0); NT-PRO BNP 2393 PG/ML (<450); PLATELET COUNT, AUTOMATED 199 10^3/uL (150-450); POTASSIUM SERUM 3.4 MEQ/L (3.5-5.1); RED BLOOD COUNT 4.03 10^6/uL (4.00-5.40); SODIUM LEVEL 143 MEQ/L (136-145); WHITE BLOOD COUNT 6.8 10^3/uL (4.0-10.0)
== END ==
PROVIDERS: ATTEND Family Medicine
DX: I50.9 Heart failure, unspecified (principal)

== ENCOUNTER → 2019-05-15 | Outpatient (REF) | payer MEDICARE, MEDICAID ==
[2019-05-15 10:14] LABS: HEMATOCRIT 33.2 % (36.0-47.0); HEMOGLOBIN 10.5 g/dl (12.0-15.5); MEAN CORPUSCULAR HEMOGLOBIN 27.9 pg (27.0-33.0); MEAN CORPUSCULAR HGB CONC 31.6 g/dl (32.0-36.5); MEAN CORPUSCULAR VOLUME 88.1 fl (80.0-96.0); PLATELET COUNT, AUTOMATED 172 10^3/uL (150-450); RED BLOOD COUNT 3.77 10^6/uL (4.00-5.40); WHITE BLOOD COUNT 5.9 10^3/uL (4.0-10.0)
[2019-05-15 10:37] LABS: BLOOD UREA NITROGEN 26 MG/DL (7-18); CALCIUM LEVEL 9.1 MG/DL (8.8-10.2); CARBON DIOXIDE LEVEL 27 MEQ/L (21-32); CHLORIDE LEVEL 105 MEQ/L (98-107); CREATININE FOR GFR 0.82 MG/DL (0.55-1.30); GLOMERULAR FILTRATION RATE > 60.0 (>32); GLUCOSE, FASTING 140 MG/DL (70-100); POTASSIUM SERUM 4.1 MEQ/L (3.5-5.1); SODIUM LEVEL 142 MEQ/L (136-145)
== END ==
PROVIDERS: ATTEND Family Medicine
DX: D64.9 Anemia, unspecified (principal)

== ENCOUNTER → 2019-06-13 | Outpatient (REF) | payer MEDICARE, MEDICAID ==
[2019-06-13 09:24] LABS: HEMATOCRIT 33.8 % (36.0-47.0); HEMOGLOBIN 10.5 g/dl (12.0-15.5); MEAN CORPUSCULAR HEMOGLOBIN 27.2 pg (27.0-33.0); MEAN CORPUSCULAR HGB CONC 31.1 g/dl (32.0-36.5); MEAN CORPUSCULAR VOLUME 87.6 fl (80.0-96.0); PLATELET COUNT, AUTOMATED 184 10^3/uL (150-450); RED BLOOD COUNT 3.86 10^6/uL (4.00-5.40); WHITE BLOOD COUNT 5.7 10^3/uL (4.0-10.0)
[2019-06-13 09:53] LABS: BLOOD UREA NITROGEN 18 MG/DL (7-18); CALCIUM LEVEL 8.9 MG/DL (8.8-10.2); CARBON DIOXIDE LEVEL 32 MEQ/L (21-32); CHLORIDE LEVEL 103 MEQ/L (98-107); CREATININE FOR GFR 0.79 MG/DL (0.55-1.30); GLOMERULAR FILTRATION RATE > 60.0 (>32); GLUCOSE, FASTING 92 MG/DL (70-100); POTASSIUM SERUM 4.4 MEQ/L (3.5-5.1); SODIUM LEVEL 140 MEQ/L (136-145)
== END ==
PROVIDERS: ATTEND Family Medicine
DX: D64.9 Anemia, unspecified (principal)

== ENCOUNTER → 2019-07-17 | Outpatient (REF) | payer MEDICARE, MEDICAID ==
[~2019-07-17] MED LIST changes: -OMEP40CA2 PO; +OMEP40CA97 PO
[2019-07-17 09:52] LABS: HEMATOCRIT 33.7 % (36.0-47.0); HEMOGLOBIN 10.2 g/dl (12.0-15.5); MEAN CORPUSCULAR HEMOGLOBIN 27.6 pg (27.0-33.0); MEAN CORPUSCULAR HGB CONC 30.3 g/dl (32.0-36.5); MEAN CORPUSCULAR VOLUME 91.1 fl (80.0-96.0); PLATELET COUNT, AUTOMATED 196 10^3/uL (150-450); WHITE BLOOD COUNT 5.7 10^3/uL (4.0-10.0)
[2019-07-17 10:10] LABS: BLOOD UREA NITROGEN 21 MG/DL (7-18); CALCIUM LEVEL 9.1 MG/DL (8.8-10.2); CARBON DIOXIDE LEVEL 29 MEQ/L (21-32); CHLORIDE LEVEL 107 MEQ/L (98-107); CREATININE FOR GFR 0.89 MG/DL (0.55-1.30); GLOMERULAR FILTRATION RATE > 60.0 (>32); GLUCOSE, FASTING 135 MG/DL (70-100); POTASSIUM SERUM 4.2 MEQ/L (3.5-5.1); SODIUM LEVEL 142 MEQ/L (136-145)
== END ==
PROVIDERS: ATTEND Family Medicine
DX: I50.9 Heart failure, unspecified (principal); R56.9 Unspecified convulsions

== ENCOUNTER → 2019-07-18 | Outpatient (REF) | payer MEDICARE, MEDICAID | PROVIDERS: ATTEND Family Medicine | DX: R56.9 Unspecified convulsions (principal) ==

== ENCOUNTER → 2019-08-21 | Outpatient (REF) | payer MEDICARE, MEDICAID ==
[~2019-08-21] MED LIST changes: -SIMV40TA2 PO; +SIMV40TA20 PO
--- NOTE | 2019-08-21 14:01 | REPPI ---
REASON FOR EXAM: History of CHF and COPD. The technique utilized in obtaining the radiograph has magnified the cardiac silhouette and accentuated the interstitial markings. Comparison is multiple, latest 03/13/2019. There is global cardiomegaly accentuated by technique. The patchy opacity seen previously in the right lower lobe has resolved. Lung queen are clear and the pleural angles are sharp. There is no significant change in the appearance of the osseous structures. IMPRESSION: Chronic changes without evidence of acute cardiopulmonary disease. Electronically Signed by Luis Lin DO 08/21/2019 03:27 P
== END ==
PROVIDERS: ATTEND Family Medicine
DX: R56.9 Unspecified convulsions (principal)

== ENCOUNTER → 2019-09-02 | Outpatient (REF) | payer MEDICARE ==
[2019-09-02 19:25] LABS: HEMATOCRIT 34.3 % (36.0-47.0); HEMOGLOBIN 10.3 g/dl (12.0-15.5); MEAN CORPUSCULAR HEMOGLOBIN 27.6 pg (27.0-33.0); PLATELET COUNT, AUTOMATED 197 10^3/uL (150-450); RED BLOOD COUNT 3.73 10^6/uL (4.00-5.40)
[2019-09-02 19:33] LABS: ALBUMIN 3.1 GM/DL (3.2-5.2); ALT/SGPT 15 U/L (12-78); BILIRUBIN,TOTAL 0.3 MG/DL (0.2-1.0); BLOOD UREA NITROGEN 18 MG/DL (7-18); CALCIUM LEVEL 8.5 MG/DL (8.8-10.2); CARBON DIOXIDE LEVEL 27 MEQ/L (21-32); CHLORIDE LEVEL 108 MEQ/L (98-107); CREATININE FOR GFR 0.85 MG/DL (0.55-1.30); GLOMERULAR FILTRATION RATE > 60.0 (>32); GLUCOSE, FASTING 91 MG/DL (70-100); POTASSIUM SERUM 4.1 MEQ/L (3.5-5.1); SODIUM LEVEL 142 MEQ/L (136-145); TOTAL PROTEIN 6.7 GM/DL (6.4-8.2)
== END ==
PROVIDERS: ATTEND Family Medicine
DX: R05 Cough (principal); R09.81 Nasal congestion

== ENCOUNTER → 2019-09-03 | Outpatient (REF) | payer MEDICARE ==
--- NOTE | 2019-09-03 10:44 | REPPI ---
Clinical: Cough. Comparison: 08/21/2019. Findings: Stable cardiomegaly and chronic interstitial changes again noted. No focal consolidation. No effusion. No pneumothorax. Skeletal structures are stable. Impression: Stable cardiomegaly and chronic changes. No focal consolidation. Electronically Signed by Felipe Melaar MD 09/03/2019 10:35 A
== END ==
PROVIDERS: ATTEND Family Medicine
DX: R05 Cough (principal); I51.7 Cardiomegaly; J84.9 Interstitial pulmonary disease, unspecified

== ENCOUNTER → 2019-11-13 | Outpatient (REF) | payer MEDICARE, OTHER ==
[2019-11-13 11:58] LABS: HEMOGLOBIN 10.6 g/dl (12.0-15.5); MEAN CORPUSCULAR HEMOGLOBIN 27.9 pg (27.0-33.0); MEAN CORPUSCULAR HGB CONC 31.2 g/dl (32.0-36.5); MEAN CORPUSCULAR VOLUME 89.5 fl (80.0-96.0); PLATELET COUNT, AUTOMATED 192 10^3/uL (150-450); WHITE BLOOD COUNT 5.4 10^3/uL (4.0-10.0)
== END ==
PROVIDERS: ATTEND Internal Medicine
DX: E03.9 Hypothyroidism, unspecified (principal)

== ENCOUNTER → 2019-12-11 | Outpatient (REF) | payer MEDICARE, OTHER ==
[2019-12-11 13:13] LABS: HEMATOCRIT 37.8 % (36.0-47.0); HEMOGLOBIN 11.7 g/dl (12.0-15.5); MEAN CORPUSCULAR HEMOGLOBIN 27.9 pg (27.0-33.0); PLATELET COUNT, AUTOMATED 229 10^3/uL (150-450); WHITE BLOOD COUNT 7.5 10^3/uL (4.0-10.0)
[2019-12-11 14:04] LABS: ALBUMIN 3.5 GM/DL (3.2-5.2); ALT/SGPT 19 U/L (12-78); BILIRUBIN,TOTAL 0.6 MG/DL (0.2-1.0); BLOOD UREA NITROGEN 22 MG/DL (7-18); CALCIUM LEVEL 9.4 MG/DL (8.8-10.2); CARBON DIOXIDE LEVEL 34 MEQ/L (21-32); CHLORIDE LEVEL 105 MEQ/L (98-107); CREATININE FOR GFR 0.87 MG/DL (0.55-1.30); GLOMERULAR FILTRATION RATE > 60.0 (>32); GLUCOSE, FASTING 72 MG/DL (70-100); NT-PRO BNP 1943 PG/ML (<450); POTASSIUM SERUM 4.1 MEQ/L (3.5-5.1); SODIUM LEVEL 140 MEQ/L (136-145); TOTAL PROTEIN 6.9 GM/DL (6.4-8.2)
--- NOTE | 2019-12-12 08:16 | REPPI ---
CHEST X-RAY: SINGLE VIEW. HISTORY: Nausea. COMPARISON STUDY: September 03, 2019. FINDINGS: Moderate cardiomegaly is observed as before. The aorta is calcific and tortuous. There is diffuse osteopenia. Interstitial markings are mildly prominent diffusely also unchanged. There is linear fibrosis versus plate-like atelectasis in the right base. No acute infiltrate is seen. No pleural effusion is seen. Pulmonary vasculature is not increased. IMPRESSION: Cardiomegaly. Mildly prominent interstitial markings. Linear fibrosis versus plate-like atelectasis right base. No definite infiltrate. Electronically Signed by Miller Vasquez MD 12/12/2019 08:59 A
--- NOTE | 2019-12-12 08:17 | REPPI ---
REASON: Nausea. COMPARISON: 02/07/2019. There is no significant change in the appearance of the intestinal gas pattern. There is no intestinal obstruction. Scattered intra-abdominal calcifications are noted status quo. There are surgical clips in the right upper quadrant secondary to previous cholecystectomy. There is no evidence of free intraperitoneal air on this limited KUB obtained supine. There is no change in the osseous structures. IMPRESSION: Nonspecific findings as described above. No significant change from the prior exam. Electronically Signed by Luis Lin DO 12/12/2019 08:44 A
== END ==
PROVIDERS: ATTEND Family Medicine
DX: R11.2 Nausea with vomiting, unspecified (principal)

== ENCOUNTER → 2020-01-22 | Outpatient (REF) ==
[~2020-01-22] MED LIST changes: +MIRT-60 PO; -REME30TA PO
== END ==
PROVIDERS: ATTEND Internal Medicine
DX: Z03.818 Encounter for observation for suspected exposure to other biological agents ruled out (principal)

== ENCOUNTER → 2020-02-20 | Outpatient (REF) | payer MEDICARE, OTHER ==
[~2020-02-20] MED LIST changes: -MIRT-60 PO; +REME30TA PO
[2020-02-20 12:20] LABS: BLOOD UREA NITROGEN 26 MG/DL (7-18); CALCIUM LEVEL 8.9 MG/DL (8.8-10.2); CARBON DIOXIDE LEVEL 31 MEQ/L (21-32); CHLORIDE LEVEL 103 MEQ/L (98-107); CREATININE FOR GFR 0.92 MG/DL (0.55-1.30); GLOMERULAR FILTRATION RATE > 60.0 (>32); GLUCOSE, FASTING 115 MG/DL (70-100); POTASSIUM SERUM 3.6 MEQ/L (3.5-5.1); SODIUM LEVEL 141 MEQ/L (136-145)
== END ==
PROVIDERS: ATTEND Nurse Practitioner Adult Health
DX: I50.9 Heart failure, unspecified (principal); I11.0 Hypertensive heart disease with heart failure

== ENCOUNTER → 2020-02-22 | Outpatient (CLI) | payer MEDICARE, MEDICAID ==
[~2020-02-22] MED LIST changes: +GASTROGRAFIN SOLUTION 30ML (Q9963) As Ordered ONE; +ISOVUE-370 76% 100ML VIAL As Ordered ONE; +MIRT-60 PO; -REME30TA PO
--- NOTE | 2020-02-22 10:24 | REP ---
REASON FOR EXAM: Assess for possible bowel obstruction. The latest prior for comparison is 02/12/2019, a noncontrast enhanced exam. CONTRAST: 100 mL Isovue 370. There are chronic lung base changes. The pleural effusions seen previously have resolved. The liver, spleen, pancreas, adrenal glands, and kidneys are within normal limits for the patient's age. The abdominal aorta and para-aortic regions are within normal limits for the patient's age. No free fluid or free air is seen in the abdomen or pelvis. 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 Small and large bowel loops are within the hernial sac. There is no intestinal obstruction. There is no evidence of an intra-abdominal or intrapelvic mass. There is an incidental trace amount of pelvic fluid unchanged from the prior exam and likely physiologic. Bone window technique through the examination shows chronic osseous changes status quo. IMPRESSION: Parastomal hernia as described above. Electronically Signed by Luis Lin DO 02/22/2020 01:45 P
== END ==
LOC: M RAD 07:15
PROVIDERS: ATTEND Nurse Practitioner Adult Health
DX: R14.0 Abdominal distension (gaseous) (principal); Z93.3 Colostomy status; K43.5 Parastomal hernia without obstruction or gangrene
CPT/HCPCS: 74177; Q9963; Q9967

== ENCOUNTER → 2020-03-11 | Outpatient (REF) | payer MEDICARE, MEDICAID ==
[~2020-03-11] MED LIST changes: -GASTROGRAFIN SOLUTION 30ML (Q9963) As Ordered ONE; -ISOVUE-370 76% 100ML VIAL As Ordered ONE; -MIRT-60 PO; +REME30TA PO
[2020-03-11 10:04] LABS: HEMATOCRIT 33.6 % (36.0-47.0); HEMOGLOBIN 10.7 g/dl (12.0-15.5); MEAN CORPUSCULAR HEMOGLOBIN 28.6 pg (27.0-33.0); MEAN CORPUSCULAR HGB CONC 31.8 g/dl (32.0-36.5); MEAN CORPUSCULAR VOLUME 89.8 fl (80.0-96.0); PLATELET COUNT, AUTOMATED 166 10^3/uL (150-450); RED BLOOD COUNT 3.74 10^6/uL (4.00-5.40); WHITE BLOOD COUNT 14.9 10^3/uL (4.0-10.0)
[2020-03-11 10:23] LABS: CALCIUM LEVEL 8.9 MG/DL (8.8-10.2); CREATININE FOR GFR 1.09 MG/DL (0.55-1.30); GLOMERULAR FILTRATION RATE 50.3 (>32); POTASSIUM SERUM 3.9 MEQ/L (3.5-5.1)
--- NOTE | 2020-03-11 14:45 | REPPI ---
CHEST, SINGLE VIEW: Single view of the chest is performed and compared to a prior study of 12/11/2019. Cardiomegaly is again noted. Patchy infiltrates are seen in each lung base as a change compared to prior study. There is calcification of the thoracic aorta. Mediastinal silhouette has not definitely changed. IMPRESSION: New bibasilar infiltrates. Electronically Signed by Daniel Chavez MD 03/11/2020 07:50 P
== END ==
PROVIDERS: ATTEND Family Medicine
DX: R50.9 Fever, unspecified (principal)

== ENCOUNTER → 2020-03-14 | Outpatient (REF) | PROVIDERS: ATTEND Internal Medicine | DX: R05 Cough (principal) ==

== ENCOUNTER → 2020-03-26 | Outpatient (REF) | payer MEDICARE, MEDICAID ==
[2020-03-26 10:02] LABS: HEMATOCRIT 35.5 % (36.0-47.0); HEMOGLOBIN 11.3 g/dl (12.0-15.5); MEAN CORPUSCULAR HEMOGLOBIN 28.5 pg (27.0-33.0); MEAN CORPUSCULAR HGB CONC 31.8 g/dl (32.0-36.5); MEAN CORPUSCULAR VOLUME 89.6 fl (80.0-96.0); PLATELET COUNT, AUTOMATED 184 10^3/uL (150-450); RED BLOOD COUNT 3.96 10^6/uL (4.00-5.40); WHITE BLOOD COUNT 15.7 10^3/uL (4.0-10.0)
[2020-03-26 10:33] LABS: ANISOCYTOSIS 1+; ATYPICAL LYMPH 1 % (0-5); LYMPHOCYTES 6 % (16-44); MONOCYTES 1 % (0-5); NEUTROPHILS 92 % (28-66); OVALOCYTES 1+; PLATELET ESTIMATE NORMAL (NORMAL)
[2020-03-26 10:35] LABS: ALBUMIN 2.9 GM/DL (3.2-5.2); BILIRUBIN,TOTAL 0.6 MG/DL (0.2-1.0); CALCIUM LEVEL 8.7 MG/DL (8.8-10.2); CREATININE FOR GFR 1.25 MG/DL (0.55-1.30); POTASSIUM SERUM 3.5 MEQ/L (3.5-5.1)
== END ==
PROVIDERS: ATTEND Internal Medicine
DX: R50.9 Fever, unspecified (principal)

== ENCOUNTER → 2020-04-01 | Outpatient (REF) | payer MEDICARE, MEDICAID ==
[2020-05-04 07:41] LABS: HEMATOCRIT 35.5 % (36.0-47.0); HEMOGLOBIN 11.1 g/dl (12.0-15.5); MEAN CORPUSCULAR HEMOGLOBIN 28.1 pg (27.0-33.0); MEAN CORPUSCULAR HGB CONC 31.3 g/dl (32.0-36.5); MEAN CORPUSCULAR VOLUME 89.9 fl (80.0-96.0); PLATELET COUNT, AUTOMATED 241 10^3/uL (150-450); RED BLOOD COUNT 3.95 10^6/uL (4.00-5.40); WHITE BLOOD COUNT 10.1 10^3/uL (4.0-10.0)
[2020-05-16 11:01] LABS: CALCIUM LEVEL 9.1 MG/DL (8.8-10.2); CREATININE FOR GFR 1.37 MG/DL (0.55-1.30); GLOMERULAR FILTRATION RATE 38.6 (>32); POTASSIUM SERUM 4.5 MEQ/L (3.5-5.1)
== END ==
PROVIDERS: ATTEND Internal Medicine
DX: G40.909 Epilepsy, unspecified, not intractable, without status epilepticus (principal); I50.9 Heart failure, unspecified

== ENCOUNTER → 2020-05-14 | Outpatient (CLI) | payer MEDICARE, MEDICAID ==
--- NOTE | 2020-05-14 15:09 | REPVR ---
PROCEDURE INFORMATION: Exam: US Retroperitoneal Limited, Kidneys Exam date and time: 05/14/2020 2:48 PM Age: 89 years old Clinical indication: Abdominal pain; Generalized; Additional info: Low urine output, abd pain TECHNIQUE: Imaging protocol: Real-time ultrasound of the retroperitoneum with image documentation. Examination was focused on the kidneys. COMPARISON: CT ABD PELVIS WITH CONTRAST 02/22/2020 9:24 AM FINDINGS: Right kidney: The right kidney measures 10.5 x 4.5 x 4.0 cm. Renal cortical atrophy. The renal cortex measures 0.8 cm. 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 Vascular calcifications are present in the renal size. Left kidney: The left kidney measures 9.6 x 4.1 x 3.8 cm. Renal cortical atrophy. The renal cortex measures 0.8 cm. Vascular calcifications are present in the renal size. Bladder: The urinary bladder is imaged in the sagittal and transverse planes, and is physiologically distended but otherwise unremarkable. The wall thickness appears unremarkable. Bilateral ureteral jets are not observed by color Doppler. IMPRESSION: Bilateral renal cortical atrophy. Electronically signed by: Constantine Santamaria On 05/14/2020 15:08:58 PM
== END ==
LOC: M RAD 14:21
PROVIDERS: ATTEND Nurse Practitioner Adult Health
DX: R39.12 Poor urinary stream (principal)

== ENCOUNTER → 2020-05-19 | Outpatient (REF) | payer MEDICARE, MEDICAID ==
[2020-05-19 11:05] LABS: HEMOGLOBIN 11.9 g/dl (12.0-15.5); MEAN CORPUSCULAR HEMOGLOBIN 28.7 pg (27.0-33.0); MEAN CORPUSCULAR HGB CONC 31.3 g/dl (32.0-36.5); MEAN CORPUSCULAR VOLUME 91.6 fl (80.0-96.0); PLATELET COUNT, AUTOMATED 328 10^3/uL (150-450); RED BLOOD COUNT 4.15 10^6/uL (4.00-5.40)
== END ==
PROVIDERS: ATTEND Physician Assistant
DX: G40.909 Epilepsy, unspecified, not intractable, without status epilepticus (principal); I50.9 Heart failure, unspecified

== ENCOUNTER → 2020-07-17 | Outpatient (REF) | PROVIDERS: ATTEND Internal Medicine | DX: Z20.828 Contact with and (suspected) exposure to other viral communicable diseases (principal) ==